=== PATIENT | male | born 1955 | race Caucasian/White ===

== ENCOUNTER 2016-08-27 11:00 | Inpatient (IN) ==
[2016-08-27 15:07] LABS: Bilirubin,Urine Negative (Negative); Blood,Urine Small (Negative); Clarity,Urine Cloudy (Clear); Color,Urine Dark Yellow (Yellow); Glucose,Urine (UA) Normal (Normal); Ketones,Urine Negative (Negative); Leukocyte Esterase,Urine Moderate (Negative); Nitrite,Urine Positive (Negative); PH,Urine 5.5 pH Units (5.0-8.0); Protein,Urine 30 mg/dL (Neg-Trace); Specific Gravity,Urine 1.024 (1.010-1.025); Urobilinogen,Urine Normal (Normal)
[2016-08-27 15:10] LABS: Bacteria,Urine Few per hpf (None-Few); Hyaline Casts,Urine Few per lpf (None-Few); Squamous Epithelial Cell,Urine None Seen per lpf (None-Few); WBC,Urine TNTC per hpf (0-3)
[2016-08-27 15:22] LABS: RBC,Urine 0-3 per hpf (0-3)
[2016-08-27 15:23] LABS: Calcium Oxalate Crystals,Urine Present
[2016-08-27] MEDS ORDERED: Aspirin 325 MG TABLET PO ONE (15:33)
[2016-08-27] MEDS ORDERED: Ondansetron 4 MG/2 ML VIAL IV ONE (15:33)
--- NOTE | 2016-08-27 15:37 | Emergency Department Note ---
Disposition Clinical Impression: Fever, Pneumonia, UTI (urinary tract infection), Weakness, Light headed Disposition: Admitted As Inpatient Condition: Fair Referrals: Ana Juarez CNP [Primary Care Provider] - Forms: ED Satisfaction Letter Time of Disposition: 17:47 General Adult HPI - General Chief complaint: ED Nausea/Vomiting/Diarrhea Stated complaint: Flu/Cold like symptoms Time Seen by Provider: 08/27/16 12:43 Source: patient Mode of arrival: ambulatory Limitations: no limitations Nursing Notes Reviewed: Yes Vital Signs Reviewed: Yes - History of Present Illness HPI Narrative: This is a 60-year-old male who presents with complaints of cough, congestion, dysuria, nausea, vomiting, and body aches. Patient states this got worse last night. Patient is running a fever here. Patient denies any chest pain. Patient denies any abdominal pain, diarrhea, or bloody stools. Patient states he does have a nodule in his lungs that they are watching to see if it grows. Patient states he is due for a recheck of this. Onset (ago): day(s) Pain Scale: 6 - Related Data Home Medications Medication Instructions Recorded Confirmed Atorvastatin [Lipitor] 40 mg PO HS 08/27/16 08/27/16 Gabapentin [Neurontin] 800 mg PO QID 08/27/16 08/27/16 Hydrochlorothiazide 25 mg PO DAILY 08/27/16 08/27/16 Lisinopril 30 mg PO DAILY 08/27/16 08/27/16 Omeprazole [PriLOSEC] 40 mg PO DAILY 08/27/16 08/27/16 Tramadol HCl [Ultram] 100 mg PO QID PRN 08/27/16 08/27/16 Allergies Allergy/AdvReac Type Severity Reaction Status Date / Time No Known Allergies Allergy Verified 09/27/15 09:57 All systems ED: reviewed and negative except as stated. Constitutional: Reports: fever, chills. Denies: weakness, weight change Eyes: Denies: eye pain, eye discharge, vision change ENT ED: Reports: congestion. Denies: ear pain, throat pain, dental pain, hearing loss, epistaxis, dysphagia Cardiovascular: Denies: chest pain, palpitations, dyspnea on exertion, edema, syncope Respiratory: Reports: cough. Denies: dyspnea, wheezes, hemoptysis, stridor Gastrointestinal: Reports: nausea, vomiting. Denies: abdominal pain, diarrhea, constipation, hematemesis, melena, hematochezia Genitourinary: Reports: dysuria, frequency. Denies: urgency, hematuria Musculoskeletal: Reports: myalgia (body aches). Denies: back pain, neck pain, arthralgia Integumentary: Denies: rash, abrasion, lesions Neurological: Denies: headache, weakness, numbness, paresthesias, confusion, abnormal gait, vertigo Psychiatric: Denies: anxiety, depression, suicidal thoughts, homicidal thoughts , auditory hallucinations, visual hallucinations Endocrine: Denies: fatigue Hematological/Lymphatic: Denies: easy bleeding, easy bruising Allergic/Immunologic: Denies: facial swelling, urticaria Past Medical History - Past Medical History Attestation: Yes The following information was validated with the patient. Source: patient Medical history: Reports: cancer, hyperlipidemia, hypertension, other Psychiatric history: Reports: no psych history - Social History Smoking Status: Former smoker Smokeless Tobacco Status: No Alcohol use: Reports: none Drug use: Reports: none Physical Exam - General Limitations: no limitations General appearance: alert, in no apparent distress - Head Head exam: atraumatic, normocephalic, normal inspection - Eye Eye exam: Present: normal appearance, PERRL, EOMI - ENT ENT exam: normal exam, normal oropharynx, mucous membranes moist - Expanded ENT Exam External ear exam: Present: normal external inspection Mouth exam: Present: normal external inspection Teeth exam: Present: normal inspection Throat exam: Present: normal inspection - Neck Neck exam: Present: normal inspection, full ROM, trachea midline - Chest Chest inspection: Present: normal inspection, symmetric chest wall rise - Respiratory Respiratory exam: Present: normal lung sounds bilaterally - Cardiovascular Cardiovascular exam: Present: regular rate, normal rhythm, normal heart sounds - Abdominal Exam Abdominal exam: Present: soft, Non-Tender. Absent: tenderness, distention, guarding, rebound, rigidity - Extremities Exam Extremities exam: Present: normal inspection, full ROM. Absent: tenderness, pedal edema - Expanded Upper Extremity Exam Shoulder exam: Present: normal inspection, full ROM Arm exam: Present: normal inspection, full ROM Elbow exam: Present: normal inspection, full ROM Forearm/Wrist exam: Present: normal inspection, full ROM Hand exam: Present: normal inspection, full ROM Vascular exam: Normal: capillary refill, radial pulse - Expanded Lower Extremity Exam Hip/Pelvis exam: Present: normal inspection, full ROM Upper leg exam: Present: normal inspection, full ROM Knee exam: Present: normal inspection, full ROM Lower leg exam: Present: normal inspection, full ROM Ankle exam: Present: normal inspection, full ROM Foot/toe exam: Present: normal inspection, full ROM Neurovascular/Tendon exam: Absent: motor deficit, sensory deficit, tendon deficit - Back Exam Back exam: Present: normal inspection, full ROM. Absent: tenderness - Neurological Exam Neurological exam: Present: alert, oriented X3 - Expanded Neurological Exam Patient oriented to: Present: person, place, time Coma Scale Eye Opening: Spontaneous Coma Scale Motor Response: Obeys Commands Coma Scale Verbal Response: Oriented Coma Scale Total: 15 - Psychiatric Psychiatric exam: Present: normal affect, normal mood - Skin Skin exam: Present: warm, intact, normal color, diaphoresis Course - Consultations Consultation #1: I spoke with Dr. Acosta luong to admit. Time: 19:37 Vital Signs Temperature 101.9 F H 08/27/16 11:20 Pulse Rate 84 08/27/16 11:20 Respiratory Rate 16 08/27/16 11:20 Blood Pressure 163/82 08/27/16 11:20 O2 Sat by Pulse Oximetry 95 08/27/16 11:20 Temperature 99.1 F 08/27/16 19:30 Pulse Rate 67 08/27/16 19:28 Respiratory Rate 16 08/27/16 19:28 Blood Pressure 125/54 08/27/16 19:28 O2 Sat by Pulse Oximetry 94 L 08/27/16 19:28 Oxygen Delivery Oxygen Delivery Room Air Medical Decision Making - Medical Records Medical records reviewed: Yes I reviewed the patient's medical records. - Lab Data Lab results reviewed: Yes I reviewed the patient's lab results. Result diagrams: 08/27/16 16:29 08/27/16 16:29 Lab Results 08/27/16 08/27/16 08/27/16 Range/Units 11:37 16:29 16:29 WBC 18.6 H (4.3-11.1) K/mcL RBC 4.53 (4.19-5.50) M/mcL Hgb 12.7 L (12.9-16.9) g/dL Hct 39.2 (37.5-50.1) % MCV 86.5 (83.0-100.0) fL MCH 28.0 (28.0-33.3) pg MCHC 32.4 (31.6-35.5) g/dL RDW 14.6 H (11.5-14.5) % Plt Count 225 (140-400) K/mcL MPV 11.0 (9.4-12.4) fL Immature Gran % 1.0 (0-4) % Seg Neutrophils % 74.9 % Lymphocytes % 8.8 % Monocytes % 14.9 % Eosinophils % 0.0 % Basophils % 0.4 % Neutrophils # 13.9 H (1.6-8.9) K/mcL Lymphocytes # 1.6 (0.6-4.6) K/mcL Monocytes # 2.8 H (0.0-1.3) K/mcL Eosinophils # 0.0 (0.0-0.6) K/mcL Basophils # 0.1 (0.0-0.2) K/mcL PT (9.4-12.1) Seconds INR APTT (26.0-36.0) Seconds Sodium 134 L (136-145) mEq/L Potassium 3.8 (3.5-4.5) mEq/L Chloride 102 (98-109) mEq/L Carbon Dioxide 22 (19-29) mEq/L BUN 13 (8-26) mg/dL Creatinine 0.86 (0.72-1.25) mg/dL Est GFR ( Amer) > 60 (> 60) Est GFR (Non-Af Amer) > 60 (> 60) BUN/Creatinine Ratio 15 (6-26) Glucose 104 H (70-99) mg/dL Calculated Osmolality 278 L (280-300) Lactic Acid (0.5-2.2) mmol/L Calcium 9.1 (8.6-10.8) mg/dL Total Bilirubin (0.2-1.2) mg/dL Direct Bilirubin (0.0-0.5) mg/dL Indirect Bilirubin (0.0-1.2) mg/dL AST (5-34) Units/L ALT (0-55) Units/L Alkaline Phosphatase (38-126) Units/L Troponin I (0-0.03) ng/mL B-Natriuretic Peptide (0-100) pg/mL Serum Total Protein (6.0-8.3) g/dL Albumin (3.5-5.0) g/dL Globulin (2.4-3.5) g/dL Albumin/Globulin Ratio (1.1-2.2) Lipase (8-78) Units/L Urine Color Dark Yellow (Yellow) Urine Clarity Cloudy A (Clear) Urine pH 5.5 (5.0-8.0) pH Units Ur Specific [place] 1.024 (1.010-1.025) Urine Protein 30 H (Neg-Trace) mg/dL Urine Glucose (UA) Normal (Normal) mg/dL Urine Ketones Negative (Negative) mg/dL Urine Blood Small H (Negative) Urine Nitrite Positive A (Negative) Urine Bilirubin Negative (Negative) Urine Urobilinogen Normal (Normal) mg/dL Ur Leukocyte Esterase Moderate H (Negative) Urine Microscopic RBC 0-3 (0-3) per hpf Urine Microscopic WBC TNTC H (0-3) per hpf Ur Squamous Epith Cells None Seen (None-Few) per lpf Calcium Oxalate Crystal Present Urine Bacteria Few (None-Few) per hpf Hyaline Casts Few (None-Few) per lpf Ur Culture Indicated? YES A (NO) 08/27/16 08/27/16 08/27/16 Range/Units 16:29 16:29 16:29 WBC (4.3-11.1) K/mcL RBC (4.19-5.50) M/mcL Hgb (12.9-16.9) g/dL Hct (37.5-50.1) % MCV (83.0-100.0) fL MCH (28.0-33.3) pg MCHC (31.6-35.5) g/dL RDW (11.5-14.5) % Plt Count (140-400) K/mcL MPV (9.4-12.4) fL Immature Gran % (0-4) % Seg Neutrophils % % Lymphocytes % % Monocytes % % Eosinophils % % Basophils % % Neutrophils # (1.6-8.9) K/mcL Lymphocytes # (0.6-4.6) K/mcL Monocytes # (0.0-1.3) K/mcL Eosinophils # (0.0-0.6) K/mcL Basophils # (0.0-0.2) K/mcL PT 15.9 H (9.4-12.1) Seconds INR 1.5 APTT 32.6 (26.0-36.0) Seconds Sodium (136-145) mEq/L Potassium (3.5-4.5) mEq/L Chloride (98-109) mEq/L Carbon Dioxide (19-29) mEq/L BUN (8-26) mg/dL Creatinine (0.72-1.25) mg/dL Est GFR ( Amer) (> 60) Est GFR (Non-Af Amer) (> 60) BUN/Creatinine Ratio (6-26) Glucose (70-99) mg/dL Calculated Osmolality (280-300) Lactic Acid 1.8 (0.5-2.2) mmol/L Calcium (8.6-10.8) mg/dL Total Bilirubin 0.9 (0.2-1.2) mg/dL Direct Bilirubin 0.4 (0.0-0.5) mg/dL Indirect Bilirubin 0.5 (0.0-1.2) mg/dL AST 12 (5-34) Units/L ALT 9 (0-55) Units/L Alkaline Phosphatase 73 (38-126) Units/L Troponin I (0-0.03) ng/mL B-Natriuretic Peptide (0-100) pg/mL Serum Total Protein 7.3 (6.0-8.3) g/dL Albumin 3.5 (3.5-5.0) g/dL Globulin 3.8 H (2.4-3.5) g/dL Albumin/Globulin Ratio 0.9 L (1.1-2.2) Lipase 9 (8-78) Units/L Urine Color (Yellow) Urine Clarity (Clear) Urine pH (5.0-8.0) pH Units Ur Specific [place] (1.010-1.025) Urine Protein (Neg-Trace) mg/dL Urine Glucose (UA) (Normal) mg/dL Urine Ketones (Negative) mg/dL Urine Blood (Negative) Urine Nitrite (Negative) Urine Bilirubin (Negative) Urine Urobilinogen (Normal) mg/dL Ur Leukocyte Esterase (Negative) Urine Microscopic RBC (0-3) per hpf Urine Microscopic WBC (0-3) per hpf Ur Squamous Epith Cells (None-Few) per lpf Calcium Oxalate Crystal Urine Bacteria (None-Few) per hpf Hyaline Casts (None-Few) per lpf Ur Culture Indicated? (NO) 08/27/16 08/27/16 Range/Units 16:29 16:29 WBC (4.3-11.1) K/mcL RBC (4.19-5.50) M/mcL Hgb (12.9-16.9) g/dL Hct (37.5-50.1) % MCV (83.0-100.0) fL MCH (28.0-33.3) pg MCHC (31.6-35.5) g/dL RDW (11.5-14.5) % Plt Count (140-400) K/mcL MPV (9.4-12.4) fL Immature Gran % (0-4) % Seg Neutrophils % % Lymphocytes % % Monocytes % % Eosinophils % % Basophils % % Neutrophils # (1.6-8.9) K/mcL Lymphocytes # (0.6-4.6) K/mcL Monocytes # (0.0-1.3) K/mcL Eosinophils # (0.0-0.6) K/mcL Basophils # (0.0-0.2) K/mcL PT (9.4-12.1) Seconds INR APTT (26.0-36.0) Seconds Sodium (136-145) mEq/L Potassium (3.5-4.5) mEq/L Chloride (98-109) mEq/L Carbon Dioxide (19-29) mEq/L BUN (8-26) mg/dL Creatinine (0.72-1.25) mg/dL Est GFR ( Amer) (> 60) Est GFR (Non-Af Amer) (> 60) BUN/Creatinine Ratio (6-26) Glucose (70-99) mg/dL Calculated Osmolality (280-300) Lactic Acid (0.5-2.2) mmol/L Calcium (8.6-10.8) mg/dL Total Bilirubin (0.2-1.2) mg/dL Direct Bilirubin (0.0-0.5) mg/dL Indirect Bilirubin (0.0-1.2) mg/dL AST (5-34) Units/L ALT (0-55) Units/L Alkaline Phosphatase (38-126) Units/L Troponin I 0.01 (0-0.03) ng/mL B-Natriuretic Peptide 52 (0-100) pg/mL Serum Total Protein (6.0-8.3) g/dL Albumin (3.5-5.0) g/dL Globulin (2.4-3.5) g/dL Albumin/Globulin Ratio (1.1-2.2) Lipase (8-78) Units/L Urine Color (Yellow) Urine Clarity (Clear) Urine pH (5.0-8.0) pH Units Ur Specific [place] (1.010-1.025) Urine Protein (Neg-Trace) mg/dL Urine Glucose (UA) (Normal) mg/dL Urine Ketones (Negative) mg/dL Urine Blood (Negative) Urine Nitrite (Negative) Urine Bilirubin (Negative) Urine Urobilinogen (Normal) mg/dL Ur Leukocyte Esterase (Negative) Urine Microscopic RBC (0-3) per hpf Urine Microscopic WBC (0-3) per hpf Ur Squamous Epith Cells (None-Few) per lpf Calcium Oxalate Crystal Urine Bacteria (None-Few) per hpf Hyaline Casts (None-Few) per lpf Ur Culture Indicated? (NO) - Radiology Data Radiology results reviewed: Yes I reviewed the patient's radiology results. - EKG Data EKG #1 EKG attestation: Yes I reviewed and interpreted this EKG. EKG shows normal: sinus rhythm Rate: normal Rhythm: NSR [place]/QRS: normal Interpretation: no acute changes, normal EKG
[2016-08-27] MEDS ORDERED: 0.9 % Sodium Chloride 1,000 ML IV SCH (15:45)
[2016-08-27 16:42] LABS: Basophils # 0.1 K/mcL (0.0-0.2); Basophils % 0.4 %; Hematocrit 39.2 % (37.5-50.1); Hemoglobin 12.7 g/dL (12.9-16.9); Lymphocytes # 1.6 K/mcL (0.6-4.6); Lymphocytes % 8.8 %; Mean Corpuscular HGB Conc 32.4 g/dL (31.6-35.5); Mean Corpuscular Volume 86.5 fL (83.0-100.0); Monocytes # 2.8 K/mcL (0.0-1.3); Monocytes % 14.9 %; Neutrophils # 13.9 K/mcL (1.6-8.9); Platelet Count 225 K/mcL (140-400); Red Blood Count 4.53 M/mcL (4.19-5.50); Red Cell Distribution Width 14.6 % (11.5-14.5); Segmented Neutrophils % 74.9 %
[2016-08-27 16:51] LABS: INR 1.5; Prothrombin Time 15.9 Seconds (9.4-12.1)
[2016-08-27 16:54] LABS: Activated Partial Thrombo Time 32.6 Seconds (26.0-36.0)
[2016-08-27 16:57] LABS: BUN/Creatinine Ratio 15 (6-26); Blood Urea Nitrogen 13 mg/dL (8-26); Calcium 9.1 mg/dL (8.6-10.8); Carbon Dioxide 22 mEq/L (19-29); Chloride 102 mEq/L (98-109); Glucose 104 mg/dL (70-99); Osmolality,Calculated 278 (280-300); Potassium 3.8 mEq/L (3.5-4.5); Sodium 134 mEq/L (136-145); eGFR For African Americans > 60 (> 60); eGFR For Non-African Americans > 60 (> 60)
[2016-08-27 17:00] LABS: Albumin 3.5 g/dL (3.5-5.0); Albumin/Globulin Ratio 0.9 (1.1-2.2); Bilirubin,Direct 0.4 mg/dL (0.0-0.5); Bilirubin,Indirect 0.5 mg/dL (0.0-1.2); Bilirubin,Total 0.9 mg/dL (0.2-1.2); Globulin 3.8 g/dL (2.4-3.5); Total Protein 7.3 g/dL (6.0-8.3)
[2016-08-27] MEDS ORDERED: Azithromycin 500 MG in D5% in Water 250 ML IVPB ONE (17:44)
[2016-08-27] MEDS ORDERED: Naloxone 0.4 MG/ML INJ IVP PRN (22:50)
[2016-08-27] MEDS ORDERED: Ondansetron 4 MG/2 ML VIAL IVP PRN (22:50)
[2016-08-27 23:07] LABS: ABG Base Excess 0.7 mEq/L (-2.0 to 3.0); ABG HCO3 25.4 mEQ/L (21-27); ABG Oxygen Saturation 93 % (95-98); ABG PCO2 40 mmHg (35-45); ABG PH 7.41 pH Units (7.32-7.45); ABG PO2 65 mmHg (85-104); ABG TCO2 26.6 mEq/L (20-26)
--- NOTE | 2016-08-27 23:07 | Internal Med History&Physical ---
Date of Encounter: 08/27/16 Time of Encounter: 22:30 Assessment and Plan (1) Sepsis Current visit: Yes Status: Acute 1. Will hydrate with IVF aggressively and monitor closely. 2. Blood and urine cultures already collected. 3. Will recheck for Influenza with PCR. 4. Start Tamiflu empirically. 5. Check ABG and Lactate and follow clinically and PRN. 6. Suspect urine and pneumonia source. Qualifiers: Sepsis type: sepsis due to unspecified organism Qualified Code(s): A41.9 - Sepsis, unspecified organism (2) Acute encephalopathy Current visit: Yes Status: Acute 1. Likely due to sepsis. 2. Will check Head CT and urine drug tox screen. 3. I also ordered ABG. 4. Hold mind-altering medications. (3) Pneumonia Current visit: Yes Status: Acute 1. Blood cultures already collected. 2. Continue IV antibiotics. 3. Will add Vancomycin given clinical state of sepsis. Qualifiers: Pneumonia type: due to unspecified organism Laterality: bilateral Lung location: unspecified part of lung Qualified Code(s): J18.9 - Pneumonia, unspecified organism (4) UTI (urinary tract infection) Current visit: Yes Status: Acute 1. Urine culture collected. 2. Continue IVF and IV antibiotics. 3. Adjust antibiotics according to identified organisms when culture results obtained. Qualifiers: Urinary tract infection type: acute cystitis Hematuria presence: with hematuria Qualified Code(s): N30.01 - Acute cystitis with hematuria (5) DVT prophylaxis Current visit: Yes Status: Acute 1. Heparin SQ. Internal Medicine - H&P: HPI Chief complaint: fever, cough, body aches Admitted From: Emergency Dept History of present illness: Mr. Stevens is a 60 year old male who presents the ER today with complaints of fever, cough, congestion, body aches, vomiting, and diarrhea. Workup in the ER revealed patient to have findings consistent with pneumonia and UTI. He was subsequently admitted to the hospitalist service. Upon my assessment of the patient, he is drenched in sweat and somnolent. He is arousable and confused and disoriented. I reviewed his medications administered in the ER, and he did not receive any mind-altering medications. Based upon preliminary assessment, I am worried that he is septic. I am only able to obtain minimal history from patient due to his acute confusion and disorientation. I discussed with his nurse,and this is a change from his initial presentation from the ER. I ordered some stat labs along with continued IV fluids and antibiotics. I suspect the source of his sepsis is urine and/or pneumonia. Despite negative influenza antigen, I also suspect influenza infection. I will order Influenza PCR and start Tamiflu empirically. Past Med Surg Social Fam HX - Past Medical History Source: old records reviewed, nursing notes reviewed, other (ER records reviewed ) Medical history: cancer, hyperlipidemia, hypertension Psychiatric history: no psych history - Past Surgical History Surgical History: orthopedic, other - Social History Smoking Status: Former smoker Smokeless Tobacco Status: No Alcohol use: none Drug use: none - Family History Father Hx Family Respiratory Disorders: Yes (lung disease) Mother Hx Family Cancer: (Leukemia) Internal Medicine - H&P: Meds Atorvastatin [Lipitor] 40 mg PO HS 08/27/16 [History] Gabapentin [Neurontin] 800 mg PO QID 08/27/16 [History] Hydrochlorothiazide 25 mg PO DAILY 08/27/16 [History] Lisinopril 30 mg PO DAILY 08/27/16 [History] Omeprazole [PriLOSEC] 40 mg PO DAILY 08/27/16 [History] Tramadol HCl [Ultram] 100 mg PO QID PRN 08/27/16 [History] Allergies No Known Allergies Allergy (Verified 09/27/15 09:57) ROS unobtainable: due to mental status Review of systems: Based upon limited history and ROS, pt reports + fevers, chills, body aches, and night sweats. No further ROS could be obtained. - Constitutional Vitals: Temp Pulse Resp BP Pulse Ox 98.0 F 62 20 121/68 94 L 08/27/16 22:44 08/27/16 22:44 08/27/16 22:44 08/27/16 22:44 08/27/16 22:44 General appearance: Present: A&O X 1, disheveled, mild distress. Absent: answers questions appropriately Exam: drenched in sweat, somnolent, easily arousable, confused and disoriented - Head Head exam: Present: atraumatic, normal inspection - Expanded Head Exam Head exam expanded: Absent: abrasion, contusion, general tenderness - Eye Eye exam: Present: EOMI, normal appearance, PERRL. Absent: scleral icterus Pupils: Present: normal accommodation - ENT ENT exam: Present: mucous membranes dry, normal exam - Expanded ENT Exam Mouth exam: Present: dry mucosa Throat exam: Present: post pharyngeal erythema - Neck Neck exam general surgery: Present: full ROM, supple, trachea midline. Absent: lymphadenopathy, tenderness, nuchal rigidity - Respiratory Respiratory exam: Present: decreased breath sounds, tachypnea. Absent: accessory muscle use, chest wall tenderness, rales, rhonchi, wheezes - Cardiovascular Cardiovascular exam: Present: distant heart sounds, RRR, +S1, +S2. Absent: diastolic murmur, JVD, systolic murmur - GI/Abdominal GI/Abdominal exam: Present: diminished bowel sounds, soft, no peritoneal signs. Absent: guarding, hepatomegaly, mass, rebound, splenomegaly, tenderness - Extremities Exam Extremities exam: Present: full ROM. Absent: calf tenderness, joint swelling, normal capillary refill (delayed at roughly 3-4 seconds), pedal edema, tenderness - Back Exam Back exam: Present: normal inspection. Absent: CVA tenderness (L), CVA tenderness (R) - Neurological Exam Neurological exam: Present: altered. Absent: oriented X3, no focal deficits Additional comments: confused and disoriented; no appreciable focal deficits; negative [place]; negative [place] - Psychiatric Additional comments: somnolent, arousable, confused, disoriented - Skin Skin exam: Present: diaphoretic, dry, warm. Absent: mottled, rash Internal Med - H&P Results - Labs CBC & Chem 7: 08/27/16 16:29 08/27/16 16:29 - EKG Data -: EKG Interpreted by Myself EKG shows normal: sinus rhythm - EKG Data Prior EKG available for review: yes When compared to previous EKG: there is no significant change EKG comments: 08/27/16 23:16 Sinus rhythm; baseline artifact, no acute ST-T changes; poor quality tracing
[2016-08-27 23:08] LABS: Blood Gas FiO2 21 %
[2016-08-27] MEDS ORDERED: Vancomycin 2,000 MG in D5% in Water 250 ML IVPB SCH (23:45)
[2016-08-27] MEDS: 0.9 % Sodium Chloride w KCl 20 MEQ/1,000 ML MLS IVC SCH (23:51)
[2016-08-27] MEDS: Azithromycin 500 MG in D5% in Water 250 ML IVPB SCH (23:53)
[2016-08-28] MEDS: Vancomycin 2,000 MG in D5% in Water 500 ML IVPB SCH ×2 (02:28→13:16)
[2016-08-28] MEDS: *HR* Heparin 5,000 UNIT/ML VIAL SQ SCH ×2 (05:39→17:47)
[2016-08-28 05:40] LABS: Basophils % 0.3 %; Eosinophils # 0.1 K/mcL (0.0-0.6); Eosinophils % 0.4 %; Hematocrit 33.8 % (37.5-50.1); INR 1.4; Immature Granulocytes % 0.6 % (0-4); Lymphocytes # 1.3 K/mcL (0.6-4.6); Lymphocytes % 9.1 %; Mean Corpuscular HGB Conc 32.8 g/dL (31.6-35.5); Mean Corpuscular Hemoglobin 28.5 pg (28.0-33.3); Mean Corpuscular Volume 86.9 fL (83.0-100.0); Mean Platelet Volume 11.1 fL (9.4-12.4); Monocytes # 1.7 K/mcL (0.0-1.3); Monocytes % 12.5 %; Neutrophils # 10.6 K/mcL (1.6-8.9); Platelet Count 178 K/mcL (140-400); Prothrombin Time 15.2 Seconds (9.4-12.1); Red Blood Count 3.89 M/mcL (4.19-5.50); Red Cell Distribution Width 14.3 % (11.5-14.5); Segmented Neutrophils % 77.1 %
[2016-08-28 05:41] LABS: Hemoglobin 11.1 g/dL (12.9-16.9)
[2016-08-28 05:42] LABS: Activated Partial Thrombo Time 30.7 Seconds (26.0-36.0)
[2016-08-28 05:48] LABS: Alanine Aminotransferase 8 Units/L (0-55); Albumin/Globulin Ratio 0.8 (1.1-2.2); Alkaline Phosphatase 62 Units/L (38-126); Aspartate Amino Transferase 9 Units/L (5-34); BUN/Creatinine Ratio 15 (6-26); Bilirubin,Total 0.6 mg/dL (0.2-1.2); Blood Urea Nitrogen 11 mg/dL (8-26); Calcium 8.3 mg/dL (8.6-10.8); Carbon Dioxide 23 mEq/L (19-29); Chloride 104 mEq/L (98-109); Globulin 3.5 g/dL (2.4-3.5); Glucose 136 mg/dL (70-99); Magnesium 1.6 mg/dL (1.6-2.6); Osmolality,Calculated 281 (280-300); Potassium 3.8 mEq/L (3.5-4.5); Sodium 135 mEq/L (136-145); Total Protein 6.2 g/dL (6.0-8.3); eGFR For African Americans > 60 (> 60); eGFR For Non-African Americans > 60 (> 60)
[2016-08-28 05:49] LABS: Albumin 2.7 g/dL (3.5-5.0)
[2016-08-28] MEDS ORDERED: Aminoglycoside Consult 1 EACH MC ONE (07:23)
[2016-08-28 08:07] LABS: Amphetamine Screen,Urine Negative ng/mL (Cutoff=1000); Barbiturate Screen,Urine Negative ng/mL (Cutoff=200); Benzodiazepines Screen,Urine Negative ng/mL (Cutoff=200); Cannabinoid Screen,Urine Negative ng/mL (Cutoff = 50); Cocaine Screen,Urine Negative ng/mL (Cutoff= 300); Opiate Screen,Urine Negative ng/mL (Cutoff=300); Phencyclidine Screen,Urine Negative ng/mL (Cutoff=25)
[2016-08-28] MEDS: Acetaminophen 325 MG TABLET PO PRN ×2 (09:32→17:47)
[2016-08-28] MEDS: 0.9 % Sodium Chloride w KCl 20 MEQ/1,000 ML MLS IVC SCH (09:33)
--- NOTE | 2016-08-28 09:34 | Internal Med Progress Note ---
<Vahe Huertas - Last Filed: 08/28/16 14:54> Date of Encounter: 08/28/16 Time of Encounter: 09:34 - Assessment and plan (1) Community acquired bacterial pneumonia Current Visit: Yes Status: Acute Assessment and plan: Chest x-ray and clinical symptoms suggest CAP, con't azithromycin and rocephin IV, sputum culture collecting sample pending, blood culture x2 pending, leukocytosis improving, con't current management. (2) Sepsis Current Visit: Yes Status: Acute Assessment and plan: Resolved, source is uti and/or CAP, con't IV abx. Qualifiers: Sepsis type: sepsis due to unspecified organism Qualified Code(s): A41.9 - Sepsis, unspecified organism (3) UTI (urinary tract infection) Current Visit: Yes Status: Acute Assessment and plan: First time having this, came in with sepsis picture, r/o pyelo, stone, hydroureter since he is a male, will obtain CT abd/pelvis. Qualifiers: Urinary tract infection type: acute cystitis Hematuria presence: with hematuria Qualified Code(s): N30.01 - Acute cystitis with hematuria (4) Weakness Current Visit: Yes Status: Acute Assessment and plan: PT/OT (5) DVT prophylaxis Current Visit: Yes Status: Acute Assessment and plan: Heparin SQ BID. - Subjective Interval history: Pt seen and examined, feels better than yesterday, admits productive cough and dysuria that started few days ago. - Constitutional Vitals: Temp Pulse Resp BP Pulse Ox 99.8 F H 69 18 137/70 94 L 08/28/16 08:29 08/28/16 08:29 08/28/16 08:29 08/28/16 08:29 08/28/16 08:29 General appearance: Present: A&O X 3, no acute distress, obese, answers questions appropriately - Head Head exam: Present: atraumatic, normocephalic - Eye Eye exam: Present: PERRL, conjuntiva pink, sclera anicteric Pupils: Present: PERRL - Neck Neck exam general surgery: Present: supple, trachea midline. Absent: lymphadenopathy - Respiratory Respiratory exam: Present: decreased breath sounds (diffusely b/l). Absent: accessory muscle use, prolonged expiratory phase, rales, rhonchi, wheezes - Cardiovascular Cardiovascular exam: Present: RRR, +S1, +S2. Absent: diastolic murmur, gallop, rubs, systolic murmur - GI/Abdominal GI/Abdominal exam: Present: normal bowel sounds, soft, no peritoneal signs. Absent: distended, tenderness - Extremities Exam Extremities exam: Present: warm, radial pulses palpable and symetrical. Absent : calf tenderness, cyanotic, pedal edema - Neurological Exam Neurological exam: Present: CN II-XII intact, oriented X3, no focal deficits. Absent: pronater drift, facial droop, speech deficit - Skin Skin exam: Present: dry, intact Internal Medicine: Result - Labs CBC & Chem 7: 08/28/16 04:59 08/28/16 04:59 Labs: Short CBC 08/28/16 Range/Units 04:59 WBC 13.7 H (4.3-11.1) K/mcL Hgb 11.1 L D (12.9-16.9) g/dL Hct 33.8 L (37.5-50.1) % Plt Count 178 (140-400) K/mcL Neutrophils # 10.6 H (1.6-8.9) K/mcL BMP 08/28/16 04:59 Sodium 135 L Potassium 3.8 Chloride 104 Carbon Dioxide 23 BUN 11 Creatinine 0.72 Glucose 136 H Calcium 8.3 L Liver Function 08/28/16 Range/Units 04:59 Total Bilirubin 0.6 (0.2-1.2) mg/dL AST 9 (5-34) Units/L ALT 8 (0-55) Units/L Alkaline Phosphatase 62 (38-126) Units/L Albumin 2.7 L D (3.5-5.0) g/dL - ABG Interpretation ABG results: ABG ABG pH 7.41 pH Units (7.32-7.45) 08/27/16 22:55 ABG pCO2 40 mmHg (35-45) 08/27/16 22:55 ABG pO2 65 mmHg (85-104) L 08/27/16 22:55 ABG O2 Saturation 93 % (95-98) L 08/27/16 22:55 PT/INR, D-dimer PT 15.2 Seconds (9.4-12.1) H 08/28/16 04:59 - Impressions Impressions Head CT 08/27/16 23:25 IMPRESSION: 1. No acute intracranial abnormality. 2. Mild global parenchymal volume loss. 3. Left frontal sinusitis. D/ / Taran Hernandez MD / Taran Hernandez MD Interpreting Provider: Taran Hernandez MD Consult Discharge Plan - Plan Referrals: Ana Juarez CNP [Primary Care Provider] - 09/02/16 12:45 pm <Noah Shore - Last Filed: 08/28/16 16:36> Date of Encounter: 08/28/16 - Constitutional Vitals: Temp Pulse Resp BP Pulse Ox 98.5 F 63 22 130/74 96 08/28/16 15:25 08/28/16 15:25 08/28/16 15:25 08/28/16 15:25 08/28/16 15:25 Internal Medicine: Result - Labs CBC & Chem 7: 08/28/16 04:59 08/28/16 04:59 Labs: Short CBC 08/28/16 Range/Units 04:59 WBC 13.7 H (4.3-11.1) K/mcL Hgb 11.1 L D (12.9-16.9) g/dL Hct 33.8 L (37.5-50.1) % Plt Count 178 (140-400) K/mcL Neutrophils # 10.6 H (1.6-8.9) K/mcL BMP 08/28/16 04:59 Sodium 135 L Potassium 3.8 Chloride 104 Carbon Dioxide 23 BUN 11 Creatinine 0.72 Glucose 136 H Calcium 8.3 L Liver Function 08/28/16 Range/Units 04:59 Total Bilirubin 0.6 (0.2-1.2) mg/dL AST 9 (5-34) Units/L ALT 8 (0-55) Units/L Alkaline Phosphatase 62 (38-126) Units/L Albumin 2.7 L D (3.5-5.0) g/dL - ABG Interpretation ABG results: ABG ABG pH 7.41 pH Units (7.32-7.45) 08/27/16 22:55 ABG pCO2 40 mmHg (35-45) 08/27/16 22:55 ABG pO2 65 mmHg (85-104) L 08/27/16 22:55 ABG O2 Saturation 93 % (95-98) L 08/27/16 22:55 PT/INR, D-dimer PT 15.2 Seconds (9.4-12.1) H 08/28/16 04:59 - Impressions Impressions Head CT 08/27/16 23:25 IMPRESSION: 1. No acute intracranial abnormality. 2. Mild global parenchymal volume loss. 3. Left frontal sinusitis. D/ / Taran Hernandez MD / Taran Hernandez MD Interpreting Provider: Taran Hernandez MD - Attending Attestation I examined this patient and my medical decision-making was reviewed with the PRESS SUPERVISOR/PA/Advanced Practice Nurse/Resident Physician. I agree with the documented findings, disposition and treatment plan as described except to the extent set forth below. The patient was seen and examined with the residents during multi disciplinary rounds. I agree with the physical examination findings, assessment and plan as documented by Dr. Vahe Huertas. Briefly, patient admitted with sepsis, secondary to a urinary tract infection, chest x-ray and clinical findings also consistent with pneumonia. Community acquired pneumonia , therefore we will stop vancomycin. We will continue with coverage with both Rocephin and azithromycin. Urine culture shows gram-negative rods, we will follow final results. We will stop Tamiflu in light of negative testing for influenza. Continue with DVT prophylaxis.
--- NOTE | 2016-08-28 11:25 | Electrocardiograph Report ---
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
[2016-08-28] MEDS: Azithromycin 500 MG in D5% in Water 250 ML IVPB SCH (23:33)
[2016-08-29] MEDS: Acetaminophen 325 MG TABLET PO PRN ×2 (00:26→20:38)
[2016-08-29] MEDS: *HR* Heparin 5,000 UNIT/ML VIAL SQ SCH ×2 (06:03→17:23)
[2016-08-29 06:16] LABS: Basophils % 0.6 %; Eosinophils % 0.4 %; Hematocrit 34.4 % (37.5-50.1); Hemoglobin 11.3 g/dL (12.9-16.9); Immature Granulocytes % 0.4 % (0-4); Lymphocytes # 0.6 K/mcL (0.6-4.6); Lymphocytes % 12.1 %; Mean Corpuscular HGB Conc 32.8 g/dL (31.6-35.5); Mean Corpuscular Hemoglobin 28.5 pg (28.0-33.3); Mean Corpuscular Volume 86.9 fL (83.0-100.0); Mean Platelet Volume 11.6 fL (9.4-12.4); Monocytes # 0.7 K/mcL (0.0-1.3); Monocytes % 13.2 %; Neutrophils # 3.6 K/mcL (1.6-8.9); Platelet Count 121 K/mcL (140-400); Red Blood Count 3.96 M/mcL (4.19-5.50); Segmented Neutrophils % 73.3 %
--- NOTE | 2016-08-29 13:53 | Internal Med Progress Note ---
<Vahe Huertas - Last Filed: 08/29/16 13:50> Date of Encounter: 08/29/16 Time of Encounter: 13:50 - Assessment and plan (1) Community acquired bacterial pneumonia Current Visit: Yes Status: Acute Assessment and plan: Chest x-ray and clinical symptoms suggest CAP, con't azithromycin and rocephin IV, sputum culture collecting sample pending, blood culture x2 negative, leukocytosis resolved, con't current management. (2) Thrombocytopenia Current Visit: Yes Status: Acute Assessment and plan: Heparin started two days ago, no prior to that w/in 30 days, likely 2/2 infection, but will do workup with hepatitis panel, check b12, folic acid and hepatic panel, recheck in AM. (3) Sepsis Current Visit: Yes Status: Acute Assessment and plan: Spiked fever, tachypnea, leukocytosis resolved, waiting for urine culture, con' t IV abx. Qualifiers: Sepsis type: sepsis due to unspecified organism Qualified Code(s): A41.9 - Sepsis, unspecified organism (4) UTI (urinary tract infection) Current Visit: Yes Status: Acute Assessment and plan: CT abd was negative, culture sensitivity pending, con't rocephin for now. Qualifiers: Urinary tract infection type: acute cystitis Hematuria presence: with hematuria Qualified Code(s): N30.01 - Acute cystitis with hematuria (5) Weakness Current Visit: Yes Status: Acute Assessment and plan: PT/OT said no therapy needed for now. (6) DVT prophylaxis Current Visit: Yes Status: Acute Assessment and plan: Heparin SQ BID. - Subjective Interval history: Pt seen and examined, he said that he felt chill on/off yesterday, last night he spiked fever of 101, productive cough improved, no dysuria. - Constitutional Vitals: Temp Pulse Resp BP Pulse Ox 99.4 F 67 24 122/64 94 L 08/29/16 11:11 08/29/16 11:11 08/29/16 11:11 08/29/16 11:11 08/29/16 11:11 General appearance: Present: A&O X 3, no acute distress, obese, answers questions appropriately - Head Head exam: Present: atraumatic, normocephalic - Eye Eye exam: Present: PERRL, conjuntiva pink, sclera anicteric Pupils: Present: PERRL - Neck Neck exam general surgery: Present: supple, trachea midline. Absent: lymphadenopathy - Respiratory Respiratory exam: Present: CTAB. Absent: accessory muscle use, rales, rhonchi, wheezes - Cardiovascular Cardiovascular exam: Present: RRR, +S1, +S2. Absent: diastolic murmur, gallop, rubs, systolic murmur - GI/Abdominal GI/Abdominal exam: Present: normal bowel sounds, soft, no peritoneal signs. Absent: distended, tenderness - Extremities Exam Extremities exam: Present: warm, radial pulses palpable and symetrical. Absent : calf tenderness, cyanotic, pedal edema - Neurological Exam Neurological exam: Present: CN II-XII intact, oriented X3, no focal deficits. Absent: pronater drift, facial droop, speech deficit - Skin Skin exam: Present: dry, intact Internal Medicine: Result - Labs CBC & Chem 7: 08/29/16 04:31 08/28/16 04:59 Labs: Short CBC 08/29/16 Range/Units 04:31 WBC 4.9 D (4.3-11.1) K/mcL Hgb 11.3 L (12.9-16.9) g/dL Hct 34.4 L (37.5-50.1) % Plt Count 121 L (140-400) K/mcL Neutrophils # 3.6 (1.6-8.9) K/mcL - ABG Interpretation ABG results: ABG ABG pH 7.41 pH Units (7.32-7.45) 08/27/16 22:55 ABG pCO2 40 mmHg (35-45) 08/27/16 22:55 ABG pO2 65 mmHg (85-104) L 08/27/16 22:55 ABG O2 Saturation 93 % (95-98) L 08/27/16 22:55 PT/INR, D-dimer PT 15.2 Seconds (9.4-12.1) H 08/28/16 04:59 - Impressions Impressions Abdomen/Pelvis CT 08/28/16 14:46 IMPRESSION: No evidence of obstructive uropathy. No obvious inflammatory changes around the kidneys or urinary bladder. Fatty infiltration of the liver. Diverticulosis but no acute diverticulitis. Normal appendix. D/ 08/28/2016 18:41:06 Kathi Harris MD / fe Interpreting Provider: Kathi Harris MD Consult Discharge Plan - Plan Referrals: Ana Juarez CNP [Primary Care Provider] - 09/02/16 12:45 pm <MoneNoah R - Last Filed: 08/29/16 14:46> Date of Encounter: 08/29/16 - Constitutional Vitals: Temp Pulse Resp BP Pulse Ox 99.4 F 67 24 122/64 94 L 08/29/16 11:11 08/29/16 11:11 08/29/16 11:11 08/29/16 11:11 08/29/16 11:11 Internal Medicine: Result - Labs CBC & Chem 7: 08/29/16 04:31 08/28/16 04:59 Labs: Short CBC 08/29/16 Range/Units 04:31 WBC 4.9 D (4.3-11.1) K/mcL Hgb 11.3 L (12.9-16.9) g/dL Hct 34.4 L (37.5-50.1) % Plt Count 121 L (140-400) K/mcL Neutrophils # 3.6 (1.6-8.9) K/mcL - ABG Interpretation ABG results: ABG ABG pH 7.41 pH Units (7.32-7.45) 08/27/16 22:55 ABG pCO2 40 mmHg (35-45) 08/27/16 22:55 ABG pO2 65 mmHg (85-104) L 08/27/16 22:55 ABG O2 Saturation 93 % (95-98) L 08/27/16 22:55 PT/INR, D-dimer PT 15.2 Seconds (9.4-12.1) H 08/28/16 04:59 - Impressions Impressions Abdomen/Pelvis CT 08/28/16 14:46 IMPRESSION: No evidence of obstructive uropathy. No obvious inflammatory changes around the kidneys or urinary bladder. Fatty infiltration of the liver. Diverticulosis but no acute diverticulitis. Normal appendix. D/ 08/28/2016 18:41:06 Kathi Harris MD / fe Interpreting Provider: Kathi Harris MD - Attending Attestation Mr. Stevens was seen and examined in rounds. Agree with Dr. Huertas's note. Patient had fever last night, urine culture revealed gram-negative rods. There is thrombocytopenia as well. We will advance diet, we will continue with IV antibiotics. We will follow cultures.
[2016-08-29] MEDS: Azithromycin 500 MG in D5% in Water 250 ML IVPB SCH (22:52)
[2016-08-30] MEDS: Acetaminophen 325 MG TABLET PO PRN ×2 (04:14→19:41)
[2016-08-30 05:09] LABS: Basophils % 0.4 %; Eosinophils % 0.1 %; Hematocrit 35.9 % (37.5-50.1); Immature Granulocytes % 0.5 % (0-4); Lymphocytes % 11.7 %; Mean Corpuscular HGB Conc 33.4 g/dL (31.6-35.5); Mean Corpuscular Hemoglobin 28.4 pg (28.0-33.3); Mean Corpuscular Volume 84.9 fL (83.0-100.0); Mean Platelet Volume 11.8 fL (9.4-12.4); Monocytes # 1.2 K/mcL (0.0-1.3); Monocytes % 14.8 %; Neutrophils # 5.9 K/mcL (1.6-8.9); Platelet Count 172 K/mcL (140-400); Red Blood Count 4.23 M/mcL (4.19-5.50); Red Cell Distribution Width 13.9 % (11.5-14.5); Segmented Neutrophils % 72.5 %
[2016-08-30 05:26] LABS: Alanine Aminotransferase 19 Units/L (0-55); Albumin 2.9 g/dL (3.5-5.0); Albumin/Globulin Ratio 0.8 (1.1-2.2); Alkaline Phosphatase 73 Units/L (38-126); Aspartate Amino Transferase 28 Units/L (5-34); BUN/Creatinine Ratio 12 (6-26); Bilirubin,Total 0.4 mg/dL (0.2-1.2); Blood Urea Nitrogen 10 mg/dL (8-26); Calcium 8.8 mg/dL (8.6-10.8); Carbon Dioxide 20 mEq/L (19-29); Chloride 102 mEq/L (98-109); Globulin 3.8 g/dL (2.4-3.5); Glucose 109 mg/dL (70-99); Osmolality,Calculated 278 (280-300); Sodium 134 mEq/L (136-145); Total Protein 6.7 g/dL (6.0-8.3); eGFR For African Americans > 60 (> 60); eGFR For Non-African Americans > 60 (> 60)
[2016-08-30] MEDS: *HR* Heparin 5,000 UNIT/ML VIAL SQ SCH ×2 (05:40→17:21)
[2016-08-30 06:09] LABS: Folate 10.2 ng/mL (7.0-31.4); Hepatitis A Antibody IgM Nonreactive (Nonreactive); Hepatitis B Core IgM Nonreactive (Nonreactive); Hepatitis B Surface Antigen Nonreactive (Nonreactive); Hepatitis C Virus Antibody Nonreactive (Nonreactive); Vitamin B12 268 pg/mL (213-816)
--- NOTE | 2016-08-30 07:45 | Internal Med Progress Note ---
<Vahe Huertas - Last Filed: 08/30/16 15:38> Date of Encounter: 08/30/16 Time of Encounter: 07:45 - Assessment and plan (1) UTI due to extended-spectrum beta lactamase (ESBL) producing Escherichia coli Current Visit: Yes Status: Acute Assessment and plan: Urine culture showed e.coli ESBL, resistant to multiple abxs, will switch to ertapenem today and when he goes home, will switch to IM once daily. (2) Community acquired bacterial pneumonia Current Visit: Yes Status: Acute Assessment and plan: Chest x-ray and clinical symptoms suggest CAP, switched to ertapenem for esbl e.coli uti but this will still cover for CAP. (3) Thrombocytopenia Current Visit: Yes Status: Acute Assessment and plan: Improved, likely 2/2 underlying infection, con't abx. (4) Sepsis Current Visit: Yes Status: Acute Assessment and plan: Spiked fever, but tachypnea, leukocytosis resolved, urine culture reviwed, con' t IV abx. Qualifiers: Sepsis type: sepsis due to unspecified organism Qualified Code(s): A41.9 - Sepsis, unspecified organism (5) Weakness Current Visit: Yes Status: Acute Assessment and plan: PT/OT said no therapy needed for now. (6) DVT prophylaxis Current Visit: Yes Status: Acute Assessment and plan: Heparin SQ BID. - Subjective Interval history: Pt seen and examined, multiple fever last night, but he feels fine this AM, productive cough got better and no dysuria. - Constitutional Vitals: Temp Pulse Resp BP Pulse Ox 100.3 F H 72 17 113/63 97 08/30/16 07:04 08/30/16 07:04 08/30/16 07:04 08/30/16 07:04 08/30/16 07:04 General appearance: Present: cooperative, A&O X 3, pleasant, no acute distress, obese, answers questions appropriately - Head Head exam: Present: atraumatic, normocephalic - Eye Eye exam: Present: PERRL, conjuntiva pink, sclera anicteric Pupils: Present: PERRL - Neck Neck exam general surgery: Present: supple, trachea midline. Absent: lymphadenopathy - Respiratory Respiratory exam: Present: CTAB. Absent: accessory muscle use, rales, rhonchi, wheezes - Cardiovascular Cardiovascular exam: Present: RRR, +S1, +S2. Absent: diastolic murmur, gallop, rubs, systolic murmur - GI/Abdominal GI/Abdominal exam: Present: normal bowel sounds, soft, no peritoneal signs. Absent: distended, tenderness - Extremities Exam Extremities exam: Present: warm, radial pulses palpable and symetrical. Absent : calf tenderness, cyanotic, pedal edema - Neurological Exam Neurological exam: Present: CN II-XII intact, oriented X3, no focal deficits. Absent: pronater drift, facial droop, speech deficit - Skin Skin exam: Present: dry, intact Internal Medicine: Result - Labs CBC & Chem 7: 08/30/16 04:20 08/30/16 04:20 Labs: Short CBC 08/30/16 Range/Units 04:20 WBC 8.1 D (4.3-11.1) K/mcL Hgb 12.0 L (12.9-16.9) g/dL Hct 35.9 L (37.5-50.1) % Plt Count 172 (140-400) K/mcL Neutrophils # 5.9 (1.6-8.9) K/mcL BMP 08/30/16 04:20 Sodium 134 L Potassium 4.0 Chloride 102 Carbon Dioxide 20 BUN 10 Creatinine 0.82 Glucose 109 H Calcium 8.8 Liver Function 08/30/16 Range/Units 04:20 Total Bilirubin 0.4 (0.2-1.2) mg/dL AST 28 (5-34) Units/L ALT 19 (0-55) Units/L Alkaline Phosphatase 73 (38-126) Units/L Albumin 2.9 L (3.5-5.0) g/dL - ABG Interpretation ABG results: ABG ABG pH 7.41 pH Units (7.32-7.45) 08/27/16 22:55 ABG pCO2 40 mmHg (35-45) 08/27/16 22:55 ABG pO2 65 mmHg (85-104) L 08/27/16 22:55 ABG O2 Saturation 93 % (95-98) L 08/27/16 22:55 PT/INR, D-dimer PT 15.2 Seconds (9.4-12.1) H 08/28/16 04:59 Consult Discharge Plan - Plan Referrals: Ana Juarez CNP [Primary Care Provider] - 09/02/16 12:45 pm <ShoreNoah Alberto - Last Filed: 08/30/16 17:52> Date of Encounter: 08/30/16 - Constitutional Vitals: Temp Pulse Resp BP Pulse Ox 97.4 F L 97 17 144/93 98 08/30/16 15:23 08/30/16 15:23 08/30/16 15:23 08/30/16 15:23 08/30/16 15:23 Internal Medicine: Result - Labs CBC & Chem 7: 08/30/16 04:20 08/30/16 04:20 Labs: Short CBC 08/30/16 Range/Units 04:20 WBC 8.1 D (4.3-11.1) K/mcL Hgb 12.0 L (12.9-16.9) g/dL Hct 35.9 L (37.5-50.1) % Plt Count 172 (140-400) K/mcL Neutrophils # 5.9 (1.6-8.9) K/mcL BMP 08/30/16 04:20 Sodium 134 L Potassium 4.0 Chloride 102 Carbon Dioxide 20 BUN 10 Creatinine 0.82 Glucose 109 H Calcium 8.8 Liver Function 08/30/16 Range/Units 04:20 Total Bilirubin 0.4 (0.2-1.2) mg/dL AST 28 (5-34) Units/L ALT 19 (0-55) Units/L Alkaline Phosphatase 73 (38-126) Units/L Albumin 2.9 L (3.5-5.0) g/dL - ABG Interpretation ABG results: ABG ABG pH 7.41 pH Units (7.32-7.45) 08/27/16 22:55 ABG pCO2 40 mmHg (35-45) 08/27/16 22:55 ABG pO2 65 mmHg (85-104) L 08/27/16 22:55 ABG O2 Saturation 93 % (95-98) L 08/27/16 22:55 PT/INR, D-dimer PT 15.2 Seconds (9.4-12.1) H 08/28/16 04:59 - Attending Attestation I examined this patient and my medical decision-making was reviewed with the PRODUCT MARKETING CONSULTANT/PA/Advanced Practice Nurse/Resident Physician. I agree with the documented findings, disposition and treatment plan as described except to the extent set forth below. Mr. Stevens was seen and examined on rounds. Escherichia coli ESBL isolated. The patient was febrile overnight. We will stop Rocephin and start ertapenem. Platelet count has improved. Likely etiology of thrombocytopenia was infection. Will continue monitoring.
[2016-08-30] MEDS: Ertapenem 1,000 MG in 0.9 % Sodium Chloride Mini Bag 100 ML IVPB SCH (09:15)
[2016-08-30] MEDS: Ibuprofen 400 MG TABLET PO PRN (22:25)
[2016-08-31] MEDS: *HR* Heparin 5,000 UNIT/ML VIAL SQ SCH ×2 (06:17→17:42)
[2016-08-31] MEDS: Ertapenem 1,000 MG in 0.9 % Sodium Chloride Mini Bag 100 ML IVPB SCH (09:12)
--- NOTE | 2016-08-31 16:04 | Internal Med Progress Note ---
<Vahe Huertas - Last Filed: 08/31/16 16:02> Date of Encounter: 08/31/16 Time of Encounter: 16:04 - Assessment and plan (1) UTI due to extended-spectrum beta lactamase (ESBL) producing Escherichia coli Current Visit: Yes Status: Acute Assessment and plan: Urine culture showed e.coli ESBL, resistant to multiple abxs, switched to ertapenem and when he goes home, will switch to IM once daily. (2) Community acquired bacterial pneumonia Current Visit: Yes Status: Acute Assessment and plan: Chest x-ray and clinical symptoms suggest CAP, switched to ertapenem for esbl e.coli uti but this will still cover for CAP. (3) Thrombocytopenia Current Visit: Yes Status: Acute Assessment and plan: Improved, likely 2/2 underlying infection, con't abx. (4) Sepsis Current Visit: Yes Status: Acute Assessment and plan: Spiked fever, but tachypnea, leukocytosis resolved, urine culture reviwed, con' t IV abx. Qualifiers: Sepsis type: sepsis due to unspecified organism Qualified Code(s): A41.9 - Sepsis, unspecified organism (5) Weakness Current Visit: Yes Status: Acute Assessment and plan: PT/OT said no therapy needed for now. (6) Constipation Current Visit: Yes Status: Acute Assessment and plan: Will start lactulose BID. Qualifiers: Qualified Code(s): K59.00 - Constipation, unspecified (7) DVT prophylaxis Current Visit: Yes Status: Acute Assessment and plan: Heparin SQ BID. - Subjective Interval history: Pt seen and examined, one fever last night, but he feels fine this AM, productive cough got better and no dysuria, still no bowel movement. - Constitutional Vitals: Temp Pulse Resp BP Pulse Ox 99.4 F 72 20 147/67 95 08/31/16 15:05 08/31/16 15:05 08/31/16 15:05 08/31/16 15:05 08/31/16 15:05 General appearance: Present: cooperative, A&O X 3, pleasant, no acute distress, obese, answers questions appropriately - Head Head exam: Present: atraumatic, normocephalic - Eye Eye exam: Present: PERRL, conjuntiva pink, sclera anicteric Pupils: Present: PERRL - Neck Neck exam general surgery: Present: supple, trachea midline. Absent: lymphadenopathy - Respiratory Respiratory exam: Present: CTAB. Absent: accessory muscle use, rales, rhonchi, wheezes - Cardiovascular Cardiovascular exam: Present: RRR, +S1, +S2. Absent: diastolic murmur, gallop, rubs, systolic murmur - GI/Abdominal GI/Abdominal exam: Present: normal bowel sounds, soft, no peritoneal signs. Absent: distended, tenderness - Extremities Exam Extremities exam: Present: warm, radial pulses palpable and symetrical. Absent : calf tenderness, cyanotic, pedal edema - Neurological Exam Neurological exam: Present: CN II-XII intact, oriented X3, no focal deficits. Absent: pronater drift, facial droop, speech deficit - Skin Skin exam: Present: dry, intact Internal Medicine: Result - Labs CBC & Chem 7: 08/30/16 04:20 08/30/16 04:20 - ABG Interpretation ABG results: ABG ABG pH 7.41 pH Units (7.32-7.45) 08/27/16 22:55 ABG pCO2 40 mmHg (35-45) 08/27/16 22:55 ABG pO2 65 mmHg (85-104) L 08/27/16 22:55 ABG O2 Saturation 93 % (95-98) L 08/27/16 22:55 PT/INR, D-dimer PT 15.2 Seconds (9.4-12.1) H 08/28/16 04:59 Consult Discharge Plan - Plan Referrals: Ana Juarez FREIGHT RATE ANALYST [Primary Care Provider] - 09/02/16 12:45 pm <Noah Shore - Last Filed: 08/31/16 17:32> Date of Encounter: 08/31/16 - Constitutional Vitals: Temp Pulse Resp BP Pulse Ox 99.4 F 72 20 147/67 95 08/31/16 15:05 08/31/16 15:05 08/31/16 15:05 08/31/16 15:05 08/31/16 15:05 Internal Medicine: Result - Labs CBC & Chem 7: 08/30/16 04:20 08/30/16 04:20 - ABG Interpretation ABG results: ABG ABG pH 7.41 pH Units (7.32-7.45) 08/27/16 22:55 ABG pCO2 40 mmHg (35-45) 08/27/16 22:55 ABG pO2 65 mmHg (85-104) L 08/27/16 22:55 ABG O2 Saturation 93 % (95-98) L 08/27/16 22:55 PT/INR, D-dimer PT 15.2 Seconds (9.4-12.1) H 08/28/16 04:59 - Attending Attestation I examined this patient and my medical decision-making was reviewed with the CROP QUANTITATIVE GENETICIST/PA/Advanced Practice Nurse/Resident Physician. I agree with the documented findings, disposition and treatment plan as described except to the extent set forth below. UTI due to ESBL Escherichia coli. Febrile the last couple of days. Initially on Rocephin, switched to Ertapenem according to cultures. Doing better, leukocytosis resolved. Possible discharge tomorrow with antibiotics according to cultures.
[2016-08-31] MEDS: Lactulose Oral Soln 20 GM/30 ML UDC PO SCH ×2 (16:41→21:43)
[2016-08-31] MEDS: Acetaminophen 325 MG TABLET PO PRN (21:43)
[2016-09-01] MEDS: Ibuprofen 400 MG TABLET PO PRN (04:26)
[2016-09-01] MEDS: *HR* Heparin 5,000 UNIT/ML VIAL SQ SCH ×2 (05:50→17:31)
[2016-09-01] MEDS: Ertapenem 1,000 MG in 0.9 % Sodium Chloride Mini Bag 100 ML IVPB SCH (08:28)
[2016-09-01 08:39] LABS: Basophils % 0.5 %; Eosinophils # 0.2 K/mcL (0.0-0.6); Eosinophils % 2.3 %; Hematocrit 38.8 % (37.5-50.1); Hemoglobin 12.8 g/dL (12.9-16.9); Immature Granulocytes % 1.1 % (0-4); Lymphocytes % 15.4 %; Mean Corpuscular Hemoglobin 27.8 pg (28.0-33.3); Mean Corpuscular Volume 84.3 fL (83.0-100.0); Mean Platelet Volume 11.3 fL (9.4-12.4); Monocytes # 1.1 K/mcL (0.0-1.3); Monocytes % 17.1 %; Neutrophils # 4.2 K/mcL (1.6-8.9); Platelet Count 175 K/mcL (140-400); Red Cell Distribution Width 14.1 % (11.5-14.5); Segmented Neutrophils % 63.6 %
[2016-09-01 08:54] LABS: BUN/Creatinine Ratio 21 (6-26); Blood Urea Nitrogen 14 mg/dL (8-26); Calcium 9.1 mg/dL (8.6-10.8); Carbon Dioxide 23 mEq/L (19-29); Chloride 104 mEq/L (98-109); Glucose 107 mg/dL (70-99); Osmolality,Calculated 285 (280-300); Phosphorous 3.5 mg/dL (2.3-4.7); Potassium 3.9 mEq/L (3.5-4.5); Sodium 137 mEq/L (136-145); eGFR For African Americans > 60 (> 60); eGFR For Non-African Americans > 60 (> 60)
[2016-09-01] MEDS ORDERED: traMADol 50 MG TABLET PO PRN (11:15)
--- NOTE | 2016-09-01 11:18 | Internal Med Progress Note ---
Date of Encounter: 09/01/16 Time of Encounter: 11:16 - Assessment and plan (1) UTI due to extended-spectrum beta lactamase (ESBL) producing Escherichia coli Current Visit: Yes Status: Acute Assessment and plan: Urine culture positive for Escherichia coli ESBL We will switch to meropenem today given the persistent fevers despite being on antibiotic therapy Will obtain repeat pancultures if patient spikes a temperature overnight (2) Community acquired bacterial pneumonia Current Visit: Yes Status: Acute Assessment and plan: Change antibiotics to meropenem We will monitor overnight, patient remains afebrile for 24 hours, likely DC in the morning Patient seen by physical therapy and reported to be independent (3) Hypertension Current Visit: Yes Status: Chronic Assessment and plan: Noted to be hypertensive Restarted home medications Continue to monitor blood pressure closely Qualifiers: Hypertension type: essential hypertension Qualified Code(s): I10 - Essential (primary) hypertension (4) Constipation Current Visit: Yes Status: Acute Assessment and plan: Patient was started on lactulose for constipation Noted to have 3 loose bowel movements DC lactulose Started Senna Plus PO BID PRN constipation Qualifiers: Qualified Code(s): K59.00 - Constipation, unspecified (5) DVT prophylaxis Current Visit: Yes Status: Acute Assessment and plan: Heparin SQ (6) Thrombocytopenia Current Visit: Yes Status: Resolved Assessment and plan: Resolved - Subjective Interval history: Patient seen and examined at bedside. Resting comfortably in bed and states he feels well, however overnight was noted to have fevers, and diaphoresis. He states was a she seems to get high fevers which get better with Tylenol. Patient was noted to have Tmax of 101.3 overnight. This time he states he is comfortable and has no complaints at this time. Reports of being an every day smoker and is not ready to quit at this time. - Constitutional Vitals: Temp Pulse Resp BP Pulse Ox 97.7 F 61 20 150/80 98 09/01/16 10:16 09/01/16 10:16 09/01/16 10:16 09/01/16 10:16 09/01/16 10:16 General appearance: Present: cooperative, A&O X 3, pleasant, no acute distress, obese, answers questions appropriately - Head Head exam: Present: atraumatic, normocephalic - Eye Eye exam: Present: conjuntiva pink, sclera anicteric - Respiratory Respiratory exam: Present: CTAB. Absent: respiratory distress, wheezes - Cardiovascular Cardiovascular exam: Present: RRR, +S1, +S2 - GI/Abdominal GI/Abdominal exam: Present: normal bowel sounds, soft. Absent: tenderness - Extremities Exam Extremities exam: Present: warm, radial pulses palpable and symetrical. Absent : calf tenderness, pedal edema, tenderness - Neurological Exam Neurological exam: Present: alert, oriented X3, no focal deficits - Psychiatric Psychiatric exam: Present: normal affect, normal mood Internal Medicine: Result - Labs CBC & Chem 7: 09/01/16 08:25 09/01/16 08:25 Labs: Short CBC 09/01/16 Range/Units 08:25 WBC 6.6 (4.3-11.1) K/mcL Hgb 12.8 L (12.9-16.9) g/dL Hct 38.8 (37.5-50.1) % Plt Count 175 (140-400) K/mcL Neutrophils # 4.2 (1.6-8.9) K/mcL BMP 09/01/16 08:25 Sodium 137 Potassium 3.9 Chloride 104 Carbon Dioxide 23 BUN 14 Creatinine 0.67 L Glucose 107 H Calcium 9.1 - ABG Interpretation ABG results: ABG ABG pH 7.41 pH Units (7.32-7.45) 08/27/16 22:55 ABG pCO2 40 mmHg (35-45) 08/27/16 22:55 ABG pO2 65 mmHg (85-104) L 08/27/16 22:55 ABG O2 Saturation 93 % (95-98) L 08/27/16 22:55 PT/INR, D-dimer PT 15.2 Seconds (9.4-12.1) H 08/28/16 04:59 Consult Discharge Plan - Plan Referrals: Ana Juarez CNP [Primary Care Provider] - 09/02/16 12:45 pm
[2016-09-01] MEDS: Gabapentin 400 MG CAPSULE PO SCH ×3 (12:39→20:13)
[2016-09-01] MEDS: hydroCHLOROthiazide 25 MG TABLET PO SCH (12:40)
[2016-09-01] MEDS ORDERED: Acetaminophen 325 MG TABLET PO PRN (14:03)
[2016-09-01] MEDS: Meropenem 1,000 MG in 0.9 % Sodium Chloride Mini Bag 100 ML IVPB SCH (15:27)
[2016-09-01] MEDS ORDERED: Sennosides/Docusate Sodium TABLET PO PRN (21:00)
[2016-09-02] MEDS: Meropenem 1,000 MG in 0.9 % Sodium Chloride Mini Bag 100 ML IVPB SCH ×2 (00:31→09:08)
[2016-09-02 05:33] LABS: Basophils # 0.1 K/mcL (0.0-0.2); Basophils % 0.8 %; Eosinophils # 0.2 K/mcL (0.0-0.6); Eosinophils % 3.2 %; Hematocrit 37.3 % (37.5-50.1); Hemoglobin 12.3 g/dL (12.9-16.9); Immature Granulocytes % 1.1 % (0-4); Lymphocytes # 1.6 K/mcL (0.6-4.6); Lymphocytes % 22.2 %; Mean Corpuscular Hemoglobin 27.9 pg (28.0-33.3); Mean Corpuscular Volume 84.6 fL (83.0-100.0); Mean Platelet Volume 11.7 fL (9.4-12.4); Monocytes # 1.4 K/mcL (0.0-1.3); Monocytes % 19.9 %; Platelet Count 216 K/mcL (140-400); Red Blood Count 4.41 M/mcL (4.19-5.50); Red Cell Distribution Width 14.3 % (11.5-14.5); Segmented Neutrophils % 52.8 %
[2016-09-02 05:46] LABS: BUN/Creatinine Ratio 16 (6-26); Blood Urea Nitrogen 12 mg/dL (8-26); Calcium 8.9 mg/dL (8.6-10.8); Carbon Dioxide 26 mEq/L (19-29); Chloride 100 mEq/L (98-109); Glucose 102 mg/dL (70-99); Osmolality,Calculated 282 (280-300); Phosphorous 3.8 mg/dL (2.3-4.7); Potassium 3.9 mEq/L (3.5-4.5); Sodium 136 mEq/L (136-145); eGFR For African Americans > 60 (> 60); eGFR For Non-African Americans > 60 (> 60)
[2016-09-02] MEDS: *HR* Heparin 5,000 UNIT/ML VIAL SQ SCH (05:53)
[2016-09-02 05:58] LABS: Neutrophils # 3.8 K/mcL (1.6-8.9)
[2016-09-02 06:04] LABS: Large Platelets Present (Not Present); Platelet Estimate Normal (Normal); Reactive Lymphocytes Present (Not Present); Toxic Vacuolation Present (Not Present)
[2016-09-02] MEDS ORDERED: Lisinopril 20 MG TABLET PO SCH (09:00)
[2016-09-02] MEDS: Gabapentin 400 MG CAPSULE PO SCH ×2 (09:12→13:17)
[2016-09-02] MEDS: hydroCHLOROthiazide 25 MG TABLET PO SCH (09:13)
--- NOTE | 2016-09-02 11:07 | Discharge Summary ---
Date of Encounter: 09/02/16 Time of Encounter: 11:05 - Discharge Diagnosis (1) UTI due to extended-spectrum beta lactamase (ESBL) producing Escherichia coli Priority: Primary Status: Acute (2) Community acquired bacterial pneumonia Priority: Primary Status: Acute (3) Hypertension Priority: Secondary Status: Chronic Qualifiers: Hypertension type: essential hypertension Qualified Code(s): I10 - Essential (primary) hypertension (4) Constipation Priority: Secondary Status: Resolved Qualifiers: Constipation type: unspecified constipation type Qualified Code(s): K59.00 - Constipation, unspecified (5) DVT prophylaxis Priority: Secondary Status: Acute (6) Thrombocytopenia Priority: Secondary Status: Resolved - Discharge Medications Prescriptions: Levofloxacin [Levaquin] 500 mg PO DAILY #4 tablet Nitrofurantoin (BID) [Macrobid] 100 mg PO BID #18 capsule Home Medications: Atorvastatin [Lipitor] 40 mg PO HS 08/27/16 [History] Gabapentin [Neurontin] 800 mg PO QID 08/27/16 [History] Hydrochlorothiazide 25 mg PO DAILY 08/27/16 [History] Lisinopril 30 mg PO DAILY 08/27/16 [History] Omeprazole [PriLOSEC] 40 mg PO DAILY 08/27/16 [History] Tramadol HCl [Ultram] 50 mg PO QID PRN 08/27/16 [History] Levofloxacin [Levaquin] 500 mg PO DAILY #4 tablet 09/02/16 [Rx] Nitrofurantoin (BID) [Macrobid] 100 mg PO BID #18 capsule 09/02/16 [Rx] Allergies/Adverse Reactions: Allergies No Known Allergies Allergy (Verified 09/27/15 09:57) Date of admission: 08/27/16 22:50 Primary care physician: NOAH Amin Consults: 08/28/16 14:50 Consult to Physical Therapy [CONS] Routine Comment: Evaluate, develop and implement POC OT [Consult to Occupational Therapy] [CONS] Routine Comment: Evaluate, develop and implement POC 08/29/16 07:51 Consult to Assembler Installer General [CONS] Routine Reason for SW Consult: D/C planning Discharging clinician: Marychuy Shane Anticipated date of discharge: 09/02/16 - Patient Status Disposition: Home, Self-Care Condition: Good Functional capacity at discharge: independent ambulation Overall status at discharge: patient is back to baseline - Discharge Instructions Follow Up With: Ana Juarez CNP [Primary Care Provider] - 09/10/16 12:45 pm Additional Instructions: Please follow up with your primary care physician within one week after your discharge from the hospital. Please continue oral antibiotics as prescribed. You are given two antibiotics, one for PNA and one for UTI. Please resume all your home medications as prescribed by your primary care physician. - Diet and Activity Activity: resume usual activities as tolerated Diet: low salt diet Hospital course: Mr. Stevens is a 60 year old male with PMH of hypertension, hyperlipidemia who was admitted for management of sepsis secondary to PNA and UTI. Patient was initially started on empiric IV abx with slight improvement however as per urine cultures, he was noted to have ESBL UTI and abx were switched as per culture sensitivities. Patient was noted to have persistent fevers despite being on IV Ertapenem due to which he was switched to Meropenem. Patient remained afebrile after starting Meropenem for 24 hours. He reports of feeling significantly better and denies any discomfort at this time. He will be discharged with oral antibiotics and a follow up with his PCP within one week after his discharge. Patient demonstrates understanding of his diagnosis and his discharge plan. - Time Spent with Patient Total time spent providing and/or coordinating discharge services: - Constitutional Vitals: Temp Pulse Resp BP Pulse Ox 98.1 F 65 17 131/69 95 09/02/16 06:51 09/02/16 06:51 09/02/16 06:51 09/02/16 06:51 09/02/16 06:51 General appearance: Present: cooperative, A&O X 3, pleasant, no acute distress, obese, answers questions appropriately - Head Head exam: Present: atraumatic, normocephalic - Eye Eye exam: Present: normal appearance, conjuntiva pink, sclera anicteric - Respiratory Respiratory exam: Present: CTAB. Absent: respiratory distress, wheezes - Cardiovascular Cardiovascular exam: Present: RRR, +S1, +S2 - GI/Abdominal GI/Abdominal exam: Present: normal bowel sounds, soft. Absent: distended, tenderness - Extremities Exam Extremities exam: Present: warm, radial pulses palpable and symetrical. Absent : calf tenderness, pedal edema - Neurological Exam Neurological exam: Present: alert, oriented X3 - Psychiatric Psychiatric exam: Present: normal affect, normal mood
[2016-09-02 11:36] VITALS: BP 144/72
== END 2016-09-02 16:00 | disposition home or self-care (01) | DRG 871 ==
LOC: EMEROO 11:00 → 3ANU 11:00 → SUATTDRO 22:50
PROVIDERS: ADMIT Internal Medicine; ATTEND Internal Medicine

== ENCOUNTER 2019-03-15 07:57 | Observation (INO) ==
[2019-03-15] MEDS: 0.9 % Sodium Chloride 1,000 ML IVC SCH ×2 (08:34→17:16)
[2019-03-15] MEDS ORDERED: *HR* Heparin 10,000 UNIT/10 ML VIAL ONE (09:12)
[2019-03-15] MEDS ORDERED: 0.9 % Sodium Chloride 1,000 ML ONE (09:13)
[2019-03-15] MEDS ORDERED: Iopamidol 125 ML INFUS..BTL ONE (09:13)
[2019-03-15] MEDS ORDERED: Heparin 1,000 UNITS/500 mL 500 ML ONE (09:13)
[2019-03-15] MEDS ORDERED: Nitroglycerin 1,000 MCG/10 ML VIAL IV ONE (09:13)
[2019-03-15] MEDS ORDERED: *HR* FentaNYL (PF) 100 MCG/2 ML VIAL ONE (09:26)
[2019-03-15] MEDS ORDERED: *HR* Midazolam HCl 2 MG/2 ML VIAL ONE (09:26)
[2019-03-15] MEDS ORDERED: Verapamil 5 MG/2 ML VIAL ONE (09:36)
[2019-03-15] MEDS ORDERED: *HR* HYDROcodone/Acet 5/325 mg TABLET PO PRN (13:49)
[2019-03-15] MEDS ORDERED: Ondansetron 4 MG/2 ML VIAL IVP PRN (13:49)
[2019-03-15] MEDS ORDERED: Acetaminophen 325 MG TABLET PO PRN (13:49)
[2019-03-15] MEDS ORDERED: traZODone 50 MG TABLET PO PRN (16:19)
[2019-03-15 16:48] LABS: BUN/Creatinine Ratio 16 (6-26); Blood Urea Nitrogen 12 mg/dL (8-23); Calcium 8.8 mg/dL (8.6-10.3); Carbon Dioxide 28 mEq/L (23-29); Chloride 104 mEq/L (98-107); Glucose 131 mg/dL (70-105); Osmolality,Calculated 284 (280-300); Potassium 3.9 mEq/L (3.5-5.1); Sodium 136 mEq/L (136-145); eGFR For African Americans > 60 (> 60); eGFR For Non-African Americans > 60 (> 60)
[2019-03-15] MEDS: Budesonide/Formoterol 80/4.5 1 PUFF INH IH SCH (21:09)
[2019-03-15] MEDS: Gabapentin 400 MG CAPSULE PO SCH (21:14)
[2019-03-16] MEDS: 0.9 % Sodium Chloride 1,000 ML IVC SCH ×3 (02:57→21:47)
[2019-03-16 03:47] LABS: Basophils # 0.1 K/mcL (0.0-0.2); Basophils % 0.7 %; Eosinophils # 0.2 K/mcL (0.0-0.6); Eosinophils % 2.3 %; Hematocrit 39.5 % (37.5-50.1); Hemoglobin 12.6 g/dL (12.9-16.9); Immature Granulocytes % 0.3 % (0-4); Lymphocytes % 22.4 %; Mean Corpuscular HGB Conc 31.9 g/dL (31.6-35.5); Mean Corpuscular Hemoglobin 28.2 pg (28.0-33.3); Mean Corpuscular Volume 88.4 fL (83.0-100.0); Mean Platelet Volume 10.5 fL (9.4-12.4); Monocytes # 1.2 K/mcL (0.0-1.3); Monocytes % 14.3 %; Neutrophils # 5.2 K/mcL (1.6-8.9); Platelet Count 206 K/mcL (140-400); Red Blood Count 4.47 M/mcL (4.19-5.50); Red Cell Distribution Width 14.3 % (11.5-14.5); White Blood Count 8.7 K/mcL (4.3-11.1)
[2019-03-16 06:59] LABS: BUN/Creatinine Ratio 15 (6-26); Blood Urea Nitrogen 11 mg/dL (8-23); Carbon Dioxide 26 mEq/L (23-29); Chloride 103 mEq/L (98-107); Glucose 104 mg/dL (70-105); Osmolality,Calculated 284 (280-300); Potassium 4.3 mEq/L (3.5-5.1); Sodium 137 mEq/L (136-145); eGFR For African Americans > 60 (> 60); eGFR For Non-African Americans > 60 (> 60)
[2019-03-16] MEDS ORDERED: *HR* HYDROcodone/Acet 5/325 mg TABLET PO PRN (07:38)
[2019-03-16] MEDS: Lisinopril 20 MG TABLET PO SCH (07:41)
[2019-03-16] MEDS: Aspirin Enteric Coated 81 MG Tablet PO SCH (07:42)
[2019-03-16] MEDS: Fenofibrate 54 MG TABLET PO SCH (07:42)
[2019-03-16] MEDS: amLODIPine 5 MG TABLET PO SCH (07:42)
[2019-03-16] MEDS: Gabapentin 400 MG CAPSULE PO SCH ×3 (07:43→19:34)
[2019-03-16] MEDS ORDERED: Aspirin 81 MG TAB.CHEW PO SCH (09:00)
[2019-03-16] MEDS ORDERED: Furosemide 20 MG TABLET PO SCH (09:00)
[2019-03-16] MEDS: Budesonide/Formoterol 80/4.5 1 PUFF INH IH SCH ×2 (09:46→22:17)
[2019-03-16] MEDS ORDERED: 0.9 % Sodium Chloride 1,000 ML ONE ×2 (10:24→11:06)
[2019-03-16] MEDS ORDERED: Iopamidol 125 ML INFUS..BTL ONE ×2 (10:25→12:26)
[2019-03-16] MEDS ORDERED: Nitroglycerin 1,000 MCG/10 ML VIAL IV ONE ×2 (10:25→11:06)
[2019-03-16] MEDS ORDERED: *HR* Heparin 10,000 UNIT/10 ML VIAL ONE ×2 (10:25→11:06)
[2019-03-16] MEDS ORDERED: Heparin 1,000 UNITS/500 mL 500 ML ONE ×2 (10:25→12:31)
[2019-03-16] MEDS ORDERED: Verapamil 5 MG/2 ML VIAL ONE (11:06)
[2019-03-16] MEDS ORDERED: Nitroglycerin 25 MG/250 ML INFUS..BTL IVC ONE (11:12)
[2019-03-16] MEDS ORDERED: *HR* Midazolam HCl 2 MG/2 ML VIAL ONE ×2 (11:19→11:37)
[2019-03-16] MEDS ORDERED: *HR* FentaNYL (PF) 100 MCG/2 ML VIAL ONE (11:19)
[2019-03-16] MEDS ORDERED: *HR* Atropine Sulfate 1 MG/10 ML SYRINGE ONE (12:26)
[2019-03-17 06:00] LABS: Basophils % 0.3 %; Eosinophils # 0.2 K/mcL (0.0-0.6); Eosinophils % 2.6 %; Hematocrit 36.9 % (37.5-50.1); Hemoglobin 11.6 g/dL (12.9-16.9); Immature Granulocytes % 0.3 % (0-4); Lymphocytes # 1.2 K/mcL (0.6-4.6); Lymphocytes % 19.7 %; Mean Corpuscular HGB Conc 31.4 g/dL (31.6-35.5); Mean Corpuscular Hemoglobin 27.7 pg (28.0-33.3); Mean Corpuscular Volume 88.1 fL (83.0-100.0); Mean Platelet Volume 10.8 fL (9.4-12.4); Neutrophils # 3.8 K/mcL (1.6-8.9); Platelet Count 204 K/mcL (140-400); Red Blood Count 4.19 M/mcL (4.19-5.50); Red Cell Distribution Width 14.5 % (11.5-14.5); Segmented Neutrophils % 61.1 %; White Blood Count 6.2 K/mcL (4.3-11.1)
[2019-03-17 06:09] LABS: BUN/Creatinine Ratio 20 (6-26); Blood Urea Nitrogen 13 mg/dL (8-23); eGFR For African Americans > 60 (> 60); eGFR For Non-African Americans > 60 (> 60)
[2019-03-17 07:30] VITALS: BP 112/77
[2019-03-17] MEDS: Aspirin Enteric Coated 81 MG Tablet PO SCH (08:24)
[2019-03-17] MEDS: Fenofibrate 54 MG TABLET PO SCH (08:24)
[2019-03-17] MEDS: Lisinopril 20 MG TABLET PO SCH (08:25)
[2019-03-17] MEDS: amLODIPine 5 MG TABLET PO SCH (08:25)
[2019-03-17] MEDS: Gabapentin 400 MG CAPSULE PO SCH (08:25)
[2019-03-17] MEDS: 0.9 % Sodium Chloride 1,000 ML IVC SCH (08:26)
[2019-03-17] MEDS ORDERED: Isosorbide MONOnitrate (24 HR) 60 MG TAB.ER.24H PO SCH (09:00)
[2019-03-17] MEDS: Budesonide/Formoterol 80/4.5 1 PUFF INH IH SCH (10:40)
== END 2019-03-17 13:20 | disposition home or self-care (01) ==
LOC: INVDIALAB 07:57 → INTOOBSV 15:28 → 2ANU 15:28 → 2NNU 03-16 14:05
PROVIDERS: ADMIT Emergency Medicine; ATTEND Emergency Medicine

== ENCOUNTER 2019-03-23 12:03 | Observation (INO) ==
--- NOTE | 2019-03-23 12:18 | Emergency Department Note ---
Disposition Clinical Impression: Chest pain Qualifiers: Chest pain type: unspecified Qualified Code(s): R07.9 - Chest pain, unspecified Disposition: Admitted As Inpatient Condition: Good Time of Disposition: 17:33 Chest Pain HPI - General Stated Complaint: chest pain Time Seen by Provider: 03/23/19 12:09 Source: patient Mode of arrival: ambulatory Limitations: no limitations Vital Signs Reviewed: Yes Nursing Notes Reviewed: Yes - History of Present Illness HPI Narrative: Patient is a 63-year-old male presenting with chest pain. Patient had known history of CAD status post stent placement 5 on 03/16/[address] Sykes. Also known history of COPD, hypertension and hyperlipidemia. Patient states that the past few days he has been having intermittent chest pain located in the middle of his chest with radiation into the right shoulder currently describes to be sharp in nature, he states that most recent episode started this morning, has been intermittent throughout today, he describes associated shortness of breath that is unchanged from his baseline. No nausea, vomiting or diaphoresis. He states this feels somewhat similar to when he was diagnosed with a GA on the . Patient states that his symptoms are nonexertional, mostly occur at rest. He did take his 81 mg of aspirin as well as his Plavix. No nitroglycerin. - Related Data Home Medications Medication Instructions Recorded Confirmed Gabapentin [Neurontin] 800 mg PO TID PRN 08/27/16 03/15/19 Tramadol HCl [Ultram] 100 mg PO TID PRN 08/27/16 03/15/19 Albuterol Sulfate [Ventolin Hfa] 2 puff IH Q4H PRN 03/15/19 03/15/19 Aspirin [Lo-Dose Aspirin EC] 81 mg PO QAM 03/15/19 03/15/19 Atorvastatin Calcium [Lipitor] 80 mg PO HS 03/15/19 03/15/19 Ezetimibe 10 mg PO QAM 03/15/19 03/15/19 Fenofibric Acid (Choline) 135 mg PO QAM 03/15/19 03/15/19 [Trilipix] Fluticasone/Salmeterol [Advair 2 puff IH BID 03/15/19 03/15/19 250-50 Diskus] Furosemide [Lasix] 40 mg PO MOWEFR 03/15/19 03/15/19 Lisinopril 30 mg PO QAM 03/15/19 03/15/19 Metoprolol Tartrate [Lopressor] 50 mg PO BID 03/15/19 03/15/19 Nitroglycerin 0.3 mg SL PRN PRN 03/15/19 03/15/19 Omeprazole [PriLOSEC] 40 mg PO QAM 03/15/19 03/15/19 Trazodone HCl 100 mg PO HS PRN 03/15/19 03/15/19 amLODIPine [Norvasc] 5 mg PO QAM 03/15/19 03/15/19 Previous Rx's Medication Instructions Recorded Clopidogrel [Plavix] 75 mg PO DAILY #30 tablet 03/17/19 Isosorbide MONOnitrate (24 HR) 60 mg PO DAILY #30 tab.er.24h 03/17/19 [Imdur] Allergies Allergy/AdvReac Type Severity Reaction Status Date / Time No Known Allergies Allergy Verified 03/15/19 17:59 All systems ED: reviewed and negative except as stated. Review of Systems: As Per HPI Constitutional: Denies: fever ENT ED: Denies: congestion Cardiovascular: Reports: chest pain. Denies: palpitations, dyspnea on exertion, syncope Respiratory: Reports: dyspnea. Denies: cough, sputum production Gastrointestinal: Denies: abdominal pain, nausea, vomiting Musculoskeletal: Denies: back pain Integumentary: Denies: rash Neurological: Denies: headache, weakness, confusion Chest Pain PMH - Past Medical History Medical history: Reports: cancer, COPD, hyperlipidemia, hypertension, peripheral artery disease Surgical history: Reports: orthopedic, other Psychiatric history: Reports: no psych history - Social History Smoking Status: Former smoker Alcohol use: Reports: none Drug use: Reports: none Physical Exam General: Conversant. No apparent distress. Follow commands. Appears stated age. Neck: No JVD. Trachea midline. Neck supple. Eyes: PERRL. No scleral icterus. HENT: Normocephalic and atraumatic. Moist mucus membranes. Cardiovascular: Regular rate and rhythm. Normal S1 and S2. No murmurs appreciated. Normal capillary refill. Extremities well perfused with 2+ distal pulses bilaterally. No edema. Pulmonary: Normal and equal breath sounds bilaterally, anteriorly and posteriorly. No wheezes, rales, or rhonchi. Not in respiratory distress. Speaks in full sentences. Abdomen: Soft, nondistended, without tenderness. No bruits or masses. No guarding or rebound. Neuro: Alert and oriented x3. No slurred speech. No focal deficits noted. Skin: No rashes noted on visualized skin. Musculoskeletal: No bony abnormalities visualized. Moves all extremities. Psych: Normal mood. Pleasant. Makes appropriate eye contact. Course Vital Signs Temperature 98.5 F 03/23/19 12:12 Pulse Rate 49 03/23/19 12:12 Respiratory Rate 17 03/23/19 12:12 Blood Pressure 153/76 03/23/19 12:12 O2 Sat by Pulse Oximetry 98 03/23/19 12:12 Temperature 98.8 F 03/23/19 12:27 Pulse Rate 48 03/23/19 17:11 Respiratory Rate 16 03/23/19 17:11 Blood Pressure 143/76 03/23/19 17:11 O2 Sat by Pulse Oximetry 96 03/23/19 17:11 Oxygen Delivery Oxygen Delivery Room Air Chest Pain - MDM Narrative Medical decision making narrative: Patient is a 63-year-old male who is presenting with chest pain. Patient with known history of CAD status post stenting 5 performed on 03/16/2019 as well as hypertension and hyperlipidemia, COPD. On arrival, patient is in no acute distress, he was given 324 mg of aspirin on arrival. EKG shows no acute ischemic changes, chest x-ray shows no acute intracardiac or pulmonary etiology. Laboratory work including CBC, BMP as well as troponin within normal limits. Patient does have heart score of 5. There is also concern for possible pulmonary embolism, for this a d-dimer was performed as patient was relatively low risk, d-dimer was elevated and CTA was performed. CT shows no sign of pulmonary embolism. Given patient's consistent nature of similar symptoms as when he required stenting 1 week ago, patient will be admitted further ACS evaluation. Patient agrees with disposition of admission. - Medical Records Medical records reviewed: Yes I reviewed the patient's medical records. - Lab Data Lab results reviewed: Yes I reviewed the patient's lab results. Result diagrams: 03/23/19 12:34 03/23/19 12:34 Lab Results 03/23/19 03/23/19 03/23/19 Range/Units 12:34 12:34 12:34 WBC 8.3 (4.3-11.1) K/mcL RBC 4.05 L (4.19-5.50) M/mcL Hgb 11.4 L (12.9-16.9) g/dL Hct 35.9 L (37.5-50.1) % MCV 88.6 (83.0-100.0) fL MCH 28.1 (28.0-33.3) pg MCHC 31.8 (31.6-35.5) g/dL RDW 14.5 (11.5-14.5) % Plt Count 258 (140-400) K/mcL MPV 11.3 (9.4-12.4) fL Immature Gran % 0.6 (0-4) % Seg Neutrophils % 63.7 % Lymphocytes % 21.5 % Monocytes % 11.3 % Eosinophils % 2.4 % Basophils % 0.5 % Neutrophils # 5.3 (1.6-8.9) K/mcL Lymphocytes # 1.8 (0.6-4.6) K/mcL Monocytes # 0.9 (0.0-1.3) K/mcL Eosinophils # 0.2 (0.0-0.6) K/mcL Basophils # 0.0 (0.0-0.2) K/mcL PT 13.2 H (9.4-12.1) Seconds INR 1.2 APTT 39.1 H (26.0-36.0) Seconds D-Dimer 1411 H (0-500) ng/mLFEU Sodium 135 L (136-145) mEq/L Potassium 4.3 (3.5-5.1) mEq/L Chloride 99 (98-107) mEq/L Carbon Dioxide 27 (23-29) mEq/L BUN 12 (8-23) mg/dL Creatinine 0.83 (0.70-1.30) mg/dL Est GFR ( Amer) > 60 (> 60) Est GFR (Non-Af Amer) > 60 (> 60) BUN/Creatinine Ratio 14 (6-26) Glucose 149 H (70-105) mg/dL Calculated Osmolality 283 (280-300) Calcium 9.0 (8.6-10.3) mg/dL Troponin I < 0.03 (< 0.04) ng/mL - Radiology Data Radiology results reviewed: Yes I reviewed the patient's radiology results. - EKG Data EKG attestation: Yes I reviewed and interpreted this EKG. EKG results narrative: EKG performed at 1212 ventricular rate of 47, regular rhythm, left axis deviation, no ST segment elevation, depression, no T-wave changes. Heart Score - Score History: Moderately Suspicious EKG: Normal Age: Greater than 65 Risk Factors: Equal/Greater than 3 risk factor or history of atherosclerotic disease Troponin: Less than normal limit HEART Score Total: 5 Attestation Statement - Attestation Attestation: I, Eduard Loomis, examined this patient and my medical decision-making was reviewed with the MOLDING MACHINE OPERATOR HELPER/PA/Advanced Practice Nurse/Resident Physician. I agree with the documented findings, disposition and treatment plan as described except to the extent set forth below. 63-year-old male presents emergency Department with concerns of chest pain. Patient recently had 5 cardiac stents placed within the past week. Patient states that he is started to have still chest pain that radiates to the right upper extremity. He reports associated nausea but denies syncopal event or palpitations. Patient denies missing any of his Plavix. No recent trauma. Chest pain is on not reproducible on physical exam. Patient denies fever, chills, abdominal pain, diarrhea, hematochezia, palpitations, syncope. Patient will be admitted to hospitalist for further care and evaluation. EKG did not show evidence of STEMI. Initial troponin negative.I reviewed the EKG with the resident and agree with the interpretation.
[2019-03-23] MEDS ORDERED: Aspirin 81 MG TAB.CHEW PO ONE (12:35)
[2019-03-23 13:03] LABS: Basophils % 0.5 %; Eosinophils # 0.2 K/mcL (0.0-0.6); Eosinophils % 2.4 %; Hematocrit 35.9 % (37.5-50.1); Hemoglobin 11.4 g/dL (12.9-16.9); Immature Granulocytes % 0.6 % (0-4); Lymphocytes # 1.8 K/mcL (0.6-4.6); Lymphocytes % 21.5 %; Mean Corpuscular HGB Conc 31.8 g/dL (31.6-35.5); Mean Corpuscular Hemoglobin 28.1 pg (28.0-33.3); Mean Corpuscular Volume 88.6 fL (83.0-100.0); Mean Platelet Volume 11.3 fL (9.4-12.4); Monocytes # 0.9 K/mcL (0.0-1.3); Monocytes % 11.3 %; Neutrophils # 5.3 K/mcL (1.6-8.9); Platelet Count 258 K/mcL (140-400); Red Blood Count 4.05 M/mcL (4.19-5.50); Red Cell Distribution Width 14.5 % (11.5-14.5); Segmented Neutrophils % 63.7 %; White Blood Count 8.3 K/mcL (4.3-11.1)
[2019-03-23 13:10] LABS: INR 1.2; Prothrombin Time 13.2 Seconds (9.4-12.1)
[2019-03-23 13:13] LABS: Activated Partial Thrombo Time 39.1 Seconds (26.0-36.0)
[2019-03-23 13:29] LABS: BUN/Creatinine Ratio 14 (6-26); Blood Urea Nitrogen 12 mg/dL (8-23); Carbon Dioxide 27 mEq/L (23-29); Chloride 99 mEq/L (98-107); Glucose 149 mg/dL (70-105); Osmolality,Calculated 283 (280-300); Potassium 4.3 mEq/L (3.5-5.1); Sodium 135 mEq/L (136-145); Troponin I < 0.03 ng/mL (< 0.04); eGFR For African Americans > 60 (> 60); eGFR For Non-African Americans > 60 (> 60)
[2019-03-23] MEDS ORDERED: Isovue-370 500 ML BOTTLE IVP ONE (14:01)
[2019-03-23] MEDS ORDERED: Naloxone 0.4 MG/ML INJ IVP PRN (17:20)
[2019-03-23] MEDS ORDERED: traMADol 50 MG TABLET PO PRN (17:20)
[2019-03-23] MEDS ORDERED: Ondansetron 4 MG/2 ML VIAL IVP PRN (17:20)
[2019-03-23] MEDS ORDERED: Acetaminophen 325 MG TABLET PO PRN (17:20)
[2019-03-23] MEDS ORDERED: Ipratropium/Albuterol Neb 3 ML IH PRN (17:26)
--- NOTE | 2019-03-23 17:38 | Internal Med History&Physical ---
Date of Encounter: 03/23/19 Time of Encounter: 16:47 Internal Medicine - H&P: HPI Chief complaint: chest pain Admitted From: Emergency Dept Plans for Post Hospital Care: Home History of present illness: Mr. Stevens is a 63 year old male with a history of CAD status post recent left heart catheter and PCI, hypertension, chronic tobacco use who was recently discharged 03/17/2019 after a short hospital stay for acute coronary syndrome. It appears by his discharge records he was worked up for unstable angina left heart catheter showed severe three-vessel disease patient was given the option to have CABG or PCI. It appears the patient opted for PCI and he had multivessel PCI with rotablator to RCA 03/16/2019 and was discharged home on dual antiplatelet Therapy with aspirin and Plavix. He admits to being compliant with his medication and treatment plan, however presented today with complaints of epigastric pain occurring intermittently with no correlation with rest or activity. Patient describes the pain as sharp intermittent similar to his prior active coronary syndrome symptoms. He currently denies any chest pain started the nitroglycerin administered resolve the pain. He does report a history of gastrointestinal reflux but stated that his reflux symptoms is more of a burning sensation quite different from its current epigastric pain and that he is compliant with his omeprazole. He denies no associated diaphoresis, nausea vomiting or radiation of this pain to his neck or left lower extremity. He is work up so far included a CTA, chest x-ray and initial troponin were all remarkable Past Med Surg Social Fam HX - Past Medical History Medical history: cancer, COPD, hyperlipidemia, hypertension, peripheral artery disease Additional medical history: sleep apnea Psychiatric history: no psych history - Past Surgical History Surgical History: orthopedic, other Additional surgical history: foot surgery, 5 stents - Social History Smoking Status: Former smoker Smokeless Tobacco Status: No Alcohol use: none Drug use: none - Family History Father Hx Family Respiratory Disorders: Yes (lung disease) Mother Hx Family Cancer: (Leukemia) Internal Medicine - H&P: Meds Gabapentin [Neurontin] 800 mg PO TID PRN 08/27/16 [History] Tramadol HCl [Ultram] 100 mg PO TID PRN 08/27/16 [History] Albuterol Sulfate [Ventolin Hfa] 2 puff IH Q4H PRN 03/15/19 [History] Aspirin [Lo-Dose Aspirin EC] 81 mg PO QAM 03/15/19 [History] Atorvastatin Calcium [Lipitor] 80 mg PO HS 03/15/19 [History] Ezetimibe 10 mg PO QAM 03/15/19 [History] Fenofibric Acid (Choline) [Trilipix] 135 mg PO QAM 03/15/19 [History] Fluticasone/Salmeterol [Advair 250-50 Diskus] 2 puff IH BID 03/15/19 [History] Furosemide [Lasix] 40 mg PO MOWEFR 03/15/19 [History] Lisinopril 30 mg PO QAM 03/15/19 [History] Metoprolol Tartrate [Lopressor] 50 mg PO BID 03/15/19 [History] Nitroglycerin 0.3 mg SL PRN PRN 03/15/19 [History] Omeprazole [PriLOSEC] 40 mg PO QAM 03/15/19 [History] Trazodone HCl 100 mg PO HS PRN 03/15/19 [History] amLODIPine [Norvasc] 5 mg PO QAM 03/15/19 [History] Clopidogrel [Plavix] 75 mg PO DAILY #30 tablet 03/17/19 [Rx] Isosorbide MONOnitrate (24 HR) [Imdur] 60 mg PO DAILY #30 tab.er.24h 03/17/19 [Rx] Allergy/AdvReac Type Severity Reaction Status Date / Time No Known Allergies Allergy Verified 03/15/19 17:59 All Systems PM: A 10-system review of systems was performed and is negative for pertinent findings except as documented above in the HPI. Review of systems: GENERAL: Denies fever, chills, fatigue or night sweats. DERMATOLOGIC: Denies itch, rash or lesions HEENT: Denies headache, blurriness, diplopia or decreased visual acuity, ear pain, tinnitus, rhinorrhea, sinus tenderness or sore throat RESPIRATORY: Denies SOB, cough, hemoptysis or pleuritic chest pain CARDIOVASCULAR: Reports epigastric chest pain, denies LE edema, palpitation or syncope GASTRO INTESTINAL: Denies cramps, nausea/vomiting, diarrhea or constipation, melena MUSCULOSKELATAL: Denies muscle pain/weakness, joint tenderness/pain or swelling PSYCH: Denies worsening anxiety, or depression NEURO: Denies vertigo, dizziness, or ataxia GENITURINARY: Denies dysuria, nocturia or urinary incontinence - Constitutional Vitals: Temp Pulse Resp BP Pulse Ox 98.8 F 48 16 143/76 96 03/23/19 12:27 03/23/19 17:11 03/23/19 17:11 03/23/19 17:11 03/23/19 17:11 Exam: GENERAL: Obese male NAD, A&O x3, pleasant and conversant SKIN: No skin lesions or rashes, non-jaundiced EYES: EOMI, PERRLA, no sclera icterus HENT: Head atraumatic, no facial asymmetry, unkept facial hair, frontal and ma xillary sinus non-tender, normal hearing, oropharynx and mucosa moist and without any exudates NECK: No cervical lymphadenopathy, trachea midline, thyroid is palpable does not appear enlarged LUNGS: vesicular breath sounds, clear to auscultation, mild upper airway wheeze, no rhonchi, rales or crackles. Non labored respirations HEART: Normal rate and rhythm, no murmurs or rubs ABDOMEN: obese soft, non-tender, non-distended, bowel sounds x 4 normoactive EXTRMITIES: No LE asymmetry, No LE edema, pedal pulses 1+ and radial pulses 2 + and equal bilaterally NEURO: Speech and comprehension appears intact.. PSYCH: Cooperative, non- anxious or irritable, mood and affect is appropriate Internal Med - H&P Results - Labs CBC & Chem 7: 03/23/19 12:34 03/23/19 12:34 Labs: Short CBC 03/23/19 Range/Units 12:34 WBC 8.3 (4.3-11.1) K/mcL Hgb 11.4 L (12.9-16.9) g/dL Hct 35.9 L (37.5-50.1) % Plt Count 258 (140-400) K/mcL Neutrophils # 5.3 (1.6-8.9) K/mcL BMP 03/23/19 12:34 Sodium 135 L Potassium 4.3 Chloride 99 Carbon Dioxide 27 BUN 12 Creatinine 0.83 Glucose 149 H Calcium 9.0 Cardiac Enzymes 03/23/19 Range/Units 12:34 Troponin I < 0.03 (< 0.04) ng/mL - Impressions ITS Impressions Chest X-Ray 03/23/19 12:10 IMPRESSION: No acute process. Stable cardiomegaly D/ / Drake Henriquez MD / Drake Henriquez MD Interpreting Provider: Drake Henriquez MD Chest CTA 03/23/19 14:01 IMPRESSION: No evidence of pulmonary embolism or acute pulmonary abnormality. Coronary calcifications. D/ / Benton Ayoub / Benton Ayoub Interpreting Provider: Benton Ayoub - Assessment and Plan (1) Chest pain Current Visit: Yes Status: Acute Assessment and plan: Atypical presentation, patient recently had left heart cath with PCI, quite unlikely for acute coronary syndrome initial troponin was negative. However given his significant CAD history of three-vessel disease we will trend troponins and consult cardiology. He admits to being compliant on plavix and aspirin. There is slight concern for the possible drug interaction between Plavix and omeprazole although still debatable Qualifiers: Chest pain type: unspecified Qualified Code(s): R07.9 - Chest pain, unspecified (2) Coronary artery disease Current Visit: Yes Status: Acute Qualifiers: Coronary Disease-Associated Artery/Lesion type: [place] artery [place] vs. transplanted heart: [place] heart Associated angina: angina presence unspecified Qualified Code(s): I25.10 - Atherosclerotic heart disease of [place] coronary artery without angina pectoris (3) Tobacco abuse Current Visit: Yes Status: Acute Assessment and plan: encouraged tobacco cessation, nicotine patches ordered (4) Hypertension Current Visit: Yes Status: Chronic Assessment and plan: Continue home medications Qualifiers: Hypertension type: essential hypertension Qualified Code(s): I10 - Essential (primary) hypertension (5) GERD (gastroesophageal reflux disease) Current Visit: Yes Status: Acute Assessment and plan: chronic patient denies any current flares, there is concern for possible drug interaction between omeprazole and Plavix although debatable may benefit from a different PPI Qualifiers: Esophagitis presence: esophagitis presence not specified Qualified Code(s): K21.9 - Gastro-esophageal reflux disease without esophagitis (6) DVT prophylaxis Current Visit: Yes Status: Acute Assessment and plan: SCDs - Time Spent With Patient Total time spent is greater than 50% in coordination of care (as documented) at patient's floor/unit and/or counseling patient:
[2019-03-23 18:00] LABS: Lipase 11 Units/L (11-82)
[2019-03-23] MEDS ORDERED: Nitroglycerin 0.4 MG TAB.SUBL SL PRN (18:01)
[2019-03-23 18:06] LABS: Thyroid Stimulating Hormone 1.571 mcIU/mL (0.340-5.600)
[2019-03-23] MEDS ORDERED: traZODone 50 MG TABLET PO PRN (21:28)
[2019-03-23] MEDS: Gabapentin 400 MG CAPSULE PO PRN (21:36)
[2019-03-23] MEDS: Famotidine 20 MG TABLET PO SCH (21:37)
[2019-03-23] MEDS: Budesonide/Formoterol 80/4.5 1 PUFF INH IH SCH (23:48)
[2019-03-24 01:31] LABS: Basophils # 0.1 K/mcL (0.0-0.2); Basophils % 0.6 %; Eosinophils # 0.2 K/mcL (0.0-0.6); Eosinophils % 2.4 %; Hemoglobin 11.6 g/dL (12.9-16.9); Immature Granulocytes % 0.5 % (0-4); Lymphocytes # 1.6 K/mcL (0.6-4.6); Lymphocytes % 18.1 %; Mean Corpuscular HGB Conc 31.4 g/dL (31.6-35.5); Mean Corpuscular Hemoglobin 27.6 pg (28.0-33.3); Mean Corpuscular Volume 88.1 fL (83.0-100.0); Mean Platelet Volume 11.4 fL (9.4-12.4); Monocytes # 1.2 K/mcL (0.0-1.3); Monocytes % 13.2 %; Neutrophils # 5.7 K/mcL (1.6-8.9); Platelet Count 258 K/mcL (140-400); Red Cell Distribution Width 14.4 % (11.5-14.5); Segmented Neutrophils % 65.2 %; White Blood Count 8.7 K/mcL (4.3-11.1)
[2019-03-24 01:49] LABS: BUN/Creatinine Ratio 14 (6-26); Blood Urea Nitrogen 13 mg/dL (8-23); Calcium 9.1 mg/dL (8.6-10.3); Carbon Dioxide 29 mEq/L (23-29); Chloride 98 mEq/L (98-107); Glucose 116 mg/dL (70-105); Magnesium 2.1 mg/dL (1.6-2.6); Osmolality,Calculated 281 (280-300); Potassium 4.3 mEq/L (3.5-5.1); Sodium 135 mEq/L (136-145); eGFR For African Americans > 60 (> 60); eGFR For Non-African Americans > 60 (> 60)
[2019-03-24] MEDS: Budesonide/Formoterol 80/4.5 1 PUFF INH IH SCH ×2 (08:04→19:46)
[2019-03-24] MEDS: Furosemide 40 MG TABLET PO SCH (10:06)
[2019-03-24] MEDS: Famotidine 20 MG TABLET PO SCH ×2 (10:06→21:31)
[2019-03-24] MEDS: Lisinopril 20 MG TABLET PO SCH ×2 (10:07→10:08)
[2019-03-24] MEDS: Aspirin 81 MG TAB.CHEW PO SCH (10:07)
[2019-03-24] MEDS: Isosorbide MONOnitrate (24 HR) 60 MG TAB.ER.24H PO SCH (10:07)
[2019-03-24] MEDS: amLODIPine 5 MG TABLET PO SCH (10:07)
[2019-03-24] MEDS: Nicotine 21 MG PATCH.TD24 TD SCH (10:07)
--- NOTE | 2019-03-24 13:30 | Cardiology Consult Note ---
Date of Encounter: 03/24/19 Time of Encounter: 11:00 Assessment and Plan (1) Chest pain Current Visit: Yes Status: Acute 1. Chest pain s/p PCI x 5 stents; currently chest pain free. 2. Troponins negative x 3. CTA negative for PE. 3. On nitro, imdur, continue. Qualifiers: Chest pain type: unspecified Qualified Code(s): R07.9 - Chest pain, unspecified (2) Coronary artery disease Current Visit: Yes Status: Chronic 1. Limited Echo ordered. 2. On ASA, plavix, statin, BB, ACEI, continue. 3. Will review previous film with diesel locomotive firer of [facility] and determine recs. Qualifiers: Coronary Disease-Associated Artery/Lesion type: [place] artery [place] vs. transplanted heart: [place] heart Associated angina: angina presence unspecified Qualified Code(s): I25.10 - Atherosclerotic heart disease of [place] coronary artery without angina pectoris Discussion w patient/family: The assessment and plan as outlined above was discussed with the patient and/or family members who expressed understanding and agreement. All questions were answered. Thank you for involving us in the care of your patient. Please call with any questions. History of Present Illness Consult date: 03/24/19 Consult reason: chest pain Chief complaint: chest pain History of present illness: Mr. Stevens is a 63 year old male with PMH of CAD, COPD, HTN, HLD, PAD, [place], s/p PCI 03/16/19 stents to RPDA, 1st OM, Mid RCA, prox RCA, Prox Circ, with chronic tobacco use. Presents with complaints of sharp intermittent chest pain 5/10 at rest, not associated with activity. Treated with nitro during admission which resolved the pain. Compliant with medications on DAPT with ASA and Plavix. Denies palpitations, SOB, diaphoresis, dizziness, pedal edema, bleeding. Past Med Surg Social Fam HX - Past Medical History Attestation: Yes The following information was validated with the patient. Source: patient Medical history: cancer, COPD, hyperlipidemia, hypertension, peripheral artery disease Additional medical history: sleep apnea Psychiatric history: no psych history - Past Surgical History Surgical History: orthopedic, other Additional surgical history: foot surgery, 5 stents - Social History Smoking Status: Former smoker Smokeless Tobacco Status: No Alcohol use: none Drug use: none - Family History Father Hx Family Respiratory Disorders: Yes (lung disease) Mother Hx Family Cancer: Yes (Leukemia) Medications and Allergies Gabapentin [Neurontin] 800 mg PO TID PRN 08/27/16 [History] Tramadol HCl [Ultram] 100 mg PO TID PRN 08/27/16 [History] Albuterol Sulfate [Ventolin Hfa] 2 puff IH Q4H PRN 03/15/19 [History] Aspirin [Lo-Dose Aspirin EC] 81 mg PO QAM 03/15/19 [History] Atorvastatin Calcium [Lipitor] 80 mg PO HS 03/15/19 [History] Ezetimibe 10 mg PO QAM 03/15/19 [History] Fenofibric Acid (Choline) [Trilipix] 135 mg PO QAM 03/15/19 [History] Fluticasone/Salmeterol [Advair 250-50 Diskus] 2 puff IH BID 03/15/19 [History] Furosemide [Lasix] 40 mg PO MOWEFR 03/15/19 [History] Lisinopril 30 mg PO QAM 03/15/19 [History] Metoprolol Tartrate [Lopressor] 50 mg PO BID 03/15/19 [History] Nitroglycerin 0.3 mg SL PRN PRN 03/15/19 [History] Omeprazole [PriLOSEC] 40 mg PO QAM 03/15/19 [History] Trazodone HCl 100 mg PO HS PRN 03/15/19 [History] amLODIPine [Norvasc] 5 mg PO QAM 03/15/19 [History] Clopidogrel [Plavix] 75 mg PO DAILY #30 tablet 03/17/19 [Rx] Isosorbide MONOnitrate (24 HR) [Imdur] 60 mg PO DAILY #30 tab.er.24h 03/17/19 [Rx] Allergy/AdvReac Type Severity Reaction Status Date / Time No Known Allergies Allergy Verified 03/15/19 17:59 All Systems Review: The remainder of the systems were reviewed and are negative - Cardiovascular Cardiovascular: as per HPI Physical Examination Vital Signs, Last 4 Hours Temp Pulse Resp BP Pulse Ox 03/24/19 11:52 97.8 F 48 16 132/76 94 General: Conversant, No Apparent Distress HEENT: Atraumatic, Normocephaly, Mucus Membranes Moist Neck: No JVD, Normal carotid pulses Cardiac: Reg Rate and Rhythm, Normal S1 and S2, No Murmur Lungs: Normal Breath Sounds, No Wheeze, Rales, Rhonchi Neuro: Alert and responsive, No focal deficits noted Abdomen: Soft, Non-Tender Skin: No rashes noted on visualized skin Musculoskeletal: No Chest Wall Tenderness Extremities: No Clubbing, No Cyanosis, No Edema, Normal Pulses Results 03/24/19 00:19 03/24/19 00:19 Lab Results Laboratory Tests 03/23/19 03/24/19 03/24/19 12:34 00:19 00:19 Hgb 11.6 L Hct 37.0 L Plt Count 258 D-Dimer 1411 H BUN 13 Creatinine 0.95 Est GFR (Non-Af Amer) > 60 Laboratory Tests 03/23/19 03/23/19 03/24/19 12:34 18:30 00:19 Troponin I < 0.03 < 0.03 < 0.03 Impressions Chest CTA 03/23/19 14:01 IMPRESSION: No evidence of pulmonary embolism or acute pulmonary abnormality. Coronary calcifications. D/ / Benton Ayoub / Benton Ayoub Interpreting Provider: Benton Ayoub Active Medications Acetaminophen (Tylenol) 650 mg PO Q6HR PRN PRN Reason: Mild Pain/Fever Stop: 09/22/19 17:21 Albuterol/Ipratropium (Duoneb) 3 ml IH [id number] PRN PRN Reason: Shortness Of Breath/Wheezing Stop: 09/22/19 17:27 Last Admin: 03/24/19 08:10 Dose: 3 ml Documented by: Amlodipine Besylate (Norvasc) 5 mg PO DAILY [facility]; Protocol Stop: 09/23/19 09:01 Last Admin: 03/24/19 10:07 Dose: 5 mg Documented by: Aspirin (Aspirin) 81 mg PO DAILY [facility] Stop: 09/23/19 09:01 Last Admin: 03/24/19 10:07 Dose: 81 mg Documented by: Atorvastatin Calcium (Lipitor) 80 mg PO HS [facility] Stop: 09/22/19 21:01 Last Admin: 03/23/19 21:36 Dose: 80 mg Documented by: Budesonide/Formoterol Fumarate (Symbicort) 2 puff IH BIDR [facility] Stop: 09/22/19 22:01 Last Admin: 03/24/19 08:04 Dose: 2 puff Documented by: Clopidogrel Bisulfate (Plavix) 75 mg PO DAILY [facility] Stop: 09/23/19 09:01 Last Admin: 03/24/19 10:07 Dose: 75 mg Documented by: Clopidogrel Bisulfate (Plavix) 75 mg PO DAILY [facility] Stop: 09/23/19 09:01 Last Admin: 03/24/19 10:08 Dose: Not Given Documented by: Famotidine (Pepcid) 10 mg PO BID [facility] Stop: 09/22/19 21:01 Last Admin: 03/24/19 10:06 Dose: 10 mg Documented by: Furosemide (Lasix) 40 mg PO DAILY [facility] Stop: 09/23/19 09:01 Last Admin: 03/24/19 10:06 Dose: 40 mg Documented by: Gabapentin (Neurontin) 800 mg PO TID PRN PRN Reason: Pain Stop: 09/22/19 21:28 Last Admin: 03/23/19 21:36 Dose: 800 mg Documented by: Isosorbide Mononitrate (Imdur) 60 mg PO DAILY [facility] Stop: 09/23/19 09:01 Last Admin: 03/24/19 10:07 Dose: 60 mg Documented by: Lisinopril (Zestril) 30 mg PO DAILY [facility]; Protocol Stop: 09/23/19 09:01 Last Admin: 03/24/19 10:07 Dose: 30 mg Documented by: Lisinopril (Zestril) 30 mg PO QAM [facility] Stop: 09/23/19 09:01 Last Admin: 03/24/19 10:08 Dose: Not Given Documented by: Metoprolol Tartrate (Lopressor) 50 mg PO BID [facility] Stop: 09/22/19 21:01 Last Admin: 03/24/19 10:07 Dose: 50 mg Documented by: Naloxone HCl (Narcan) 0.4 mg IVP Q2MPRN PRN PRN Reason: SEE COMMENTS Stop: 09/22/19 17:21 Nicotine (Nicoderm) 21 mg TD DAILY [facility]; Protocol Stop: 09/23/19 09:01 Last Admin: 03/24/19 10:07 Dose: Not Given Documented by: Nitroglycerin (Nitroglycerin) 0.4 mg SL Q5MPRN PRN PRN Reason: Chest Pain Stop: 09/22/19 18:02 Omeprazole (Prilosec) 40 mg PO DAILY@0630 [facility]; Protocol Stop: 09/23/19 06:31 Ondansetron HCl (Zofran) 4 mg IVP Q8HR PRN PRN Reason: Nausea And Vomiting Stop: 09/22/19 17:21 Tramadol HCl (Ultram) 50 mg PO Q6HR PRN PRN Reason: Moderate Pain Stop: 09/22/19 17:21 Trazodone HCl (Trazodone) 100 mg PO HS PRN PRN Reason: Insomnia Stop: 09/22/19 21:29 - Imaging and Cardiology Chest Xray: report reviewed Echo: pending Cardiac cath: report reviewed - EKG Interpretation EKG results cardiology: no diagnostic ischemia Consult Discharge Plan - Plan Referrals: Ana Juarez CREELER [Primary Care Provider] - HAS-BLED Score - Score Medication usage predisposing to bleeding: Antiplatelet agents, NSAIDs, Anticoagulants Score: 1
--- NOTE | 2019-03-24 15:01 | Event Note ---
Date of Encounter: 03/24/19 Time of Encounter: 15:00 - Cardiology Event Note Cath films reviewed with Dr. Looney, no further intervention warranted, will initiate Ranexa, awaiting limited echo.
--- NOTE | 2019-03-24 16:12 | Event Note ---
Date of Encounter: 03/24/19 Time of Encounter: 16:11 - Cardiology Event Note Cardio will sign off at this time; review echo in a.m. HAS-BLED Score - Score Medication usage predisposing to bleeding: Antiplatelet agents, NSAIDs, Anticoagulants Score: 1
[2019-03-24] MEDS ORDERED: Perflutren Lipid Microsphere 1.3 ML in 0.9 % Sodium Chloride 8.7 ML IVP ONE (18:13)
--- NOTE | 2019-03-24 19:25 | Internal Med Progress Note ---
Hospitalist Progress Note - Encounter Date of Encounter: 03/24/19 Time of Encounter: 12:40 - Subjective Interval History: Mr Stevens that his chest pain is intermittent in nature. He was seen by cosmetic counselor and per consult no further workup GEN: Denies fever, chills or malaise HEENT: Denies headache blurriness, or dysphagia RESP: Denies SOB or cough CV: Reports intermittent chest pain denies palpitations GI: Denies Nausea, vomiting, diarrhea or constipation Reviewed current in hospital medications with modifications see orders Reviewed Routine labs - Exam Vitals: Temp Pulse Resp BP Pulse Ox 97.7 F 50 16 119/69 94 03/24/19 15:53 03/24/19 15:53 03/24/19 15:53 03/24/19 15:53 03/24/19 15:53 Exam: GEN: NAD, A&O x 3, Pleasant and conversant SKIN: [place] warm acyanotic not jaundice HEART: RRR, no murmurs LUNGS: CTA no wheeze or crackles, overall non labored ABDOMEN; Soft, non tender or distended, BS x 4 normactive EXT: No LE edema, Pedal pulses 1+, radial pulses 2+ PSYCH: Mood and affect is appropriate - Assessment and Plan (1) Chest pain Current Visit: Yes Status: Acute Assessment and Plan: Troponin 3 was negative he was seen by cosmetic counselor no further workup, appreciate cardiology input Atypical presentation, patient recently had left heart cath with PCI, quite unlikely for acute coronary syndrome initial troponin was negative. However given his significant CAD history of three-vessel disease we will trend troponins and consult cardiology. He admits to being compliant on plavix and aspirin. There is slight concern for the possible drug interaction between Plavix and omeprazole although still debatable (2) Coronary artery disease Current Visit: Yes Status: Chronic Assessment and Plan: encourage compliance to medical regimen (3) Tobacco abuse Current Visit: Yes Status: Acute Assessment and Plan: encouraged tobacco cessation, nicotine patches ordered (4) Hypertension Current Visit: Yes Status: Chronic Assessment and Plan: Continue home medications (5) GERD (gastroesophageal reflux disease) Current Visit: Yes Status: Acute Assessment and Plan: chronic patient denies any current flares, there is concern for possible drug interaction between omeprazole and Plavix although debatable may benefit from a different PPI (6) DVT prophylaxis Current Visit: Yes Status: Acute Assessment and Plan: SCDs - Time Spent with Patient Total time spent is greater than 50% in coordination of care (as documented) at patient's floor/unit and/or counseling patient: Internal Medicine: Result - Labs CBC & Chem 7: 03/24/19 00:19 03/24/19 00:19 Labs: Short CBC 03/24/19 Range/Units 00:19 WBC 8.7 (4.3-11.1) K/mcL Hgb 11.6 L (12.9-16.9) g/dL Hct 37.0 L (37.5-50.1) % Plt Count 258 (140-400) K/mcL Neutrophils # 5.7 (1.6-8.9) K/mcL BMP 03/24/19 00:19 Sodium 135 L Potassium 4.3 Chloride 98 Carbon Dioxide 29 BUN 13 Creatinine 0.95 Glucose 116 H Calcium 9.1 Cardiac Enzymes 03/24/19 Range/Units 00:19 Troponin I < 0.03 (< 0.04) ng/mL - ABG Interpretation ABG results: PT/INR, D-dimer PT 13.2 Seconds (9.4-12.1) H 03/23/19 12:34 D-Dimer 1411 ng/mLFEU (0-500) H 03/23/19 12:34 Consult Discharge Plan - Plan Referrals: Ana Juarez CNP [Primary Care Provider] - (1) Chest pain Qualifiers: Chest pain type: unspecified Qualified Code(s): R07.9 - Chest pain, unspecified (2) Coronary artery disease Qualifiers: Coronary Disease-Associated Artery/Lesion type: [place] artery [place] vs. transplanted heart: [place] heart Associated angina: angina presence unspecified Qualified Code(s): I25.10 - Atherosclerotic heart disease of [place] coronary artery without angina pectoris (4) Hypertension Qualifiers: Hypertension type: essential hypertension Qualified Code(s): I10 - Essential (primary) hypertension (5) GERD (gastroesophageal reflux disease) Qualifiers: Esophagitis presence: esophagitis presence not specified Qualified Code(s): K21.9 - Gastro-esophageal reflux disease without esophagitis
[2019-03-24] MEDS: Ranolazine 500 MG TAB.ER.12H PO SCH (21:30)
[2019-03-24] MEDS: Gabapentin 400 MG CAPSULE PO PRN (21:34)
[2019-03-25 05:32] LABS: Basophils # 0.1 K/mcL (0.0-0.2); Basophils % 0.6 %; Eosinophils # 0.3 K/mcL (0.0-0.6); Eosinophils % 2.8 %; Hematocrit 39.2 % (37.5-50.1); Hemoglobin 12.4 g/dL (12.9-16.9); Immature Granulocytes % 0.6 % (0-4); Lymphocytes # 1.7 K/mcL (0.6-4.6); Lymphocytes % 19.2 %; Mean Corpuscular HGB Conc 31.6 g/dL (31.6-35.5); Mean Corpuscular Hemoglobin 28.1 pg (28.0-33.3); Mean Corpuscular Volume 88.9 fL (83.0-100.0); Monocytes # 1.2 K/mcL (0.0-1.3); Monocytes % 13.4 %; Neutrophils # 5.7 K/mcL (1.6-8.9); Platelet Count 282 K/mcL (140-400); Red Blood Count 4.41 M/mcL (4.19-5.50); Red Cell Distribution Width 14.1 % (11.5-14.5); Segmented Neutrophils % 63.4 %; White Blood Count 8.9 K/mcL (4.3-11.1)
[2019-03-25 05:52] LABS: BUN/Creatinine Ratio 18 (6-26); Blood Urea Nitrogen 18 mg/dL (8-23); Calcium 9.3 mg/dL (8.6-10.3); Carbon Dioxide 28 mEq/L (23-29); Chloride 101 mEq/L (98-107); Glucose 116 mg/dL (70-105); Magnesium 2.2 mg/dL (1.6-2.6); Osmolality,Calculated 289 (280-300); Potassium 4.5 mEq/L (3.5-5.1); Sodium 138 mEq/L (136-145); eGFR For African Americans > 60 (> 60); eGFR For Non-African Americans > 60 (> 60)
[2019-03-25 06:49] VITALS: BP 146/72
[2019-03-25] MEDS: Nicotine 21 MG PATCH.TD24 TD SCH (07:43)
[2019-03-25] MEDS: Budesonide/Formoterol 80/4.5 1 PUFF INH IH SCH (08:02)
--- NOTE | 2019-03-25 08:36 | Discharge Summary ---
- NOTES TO OUTPATIENT PROVIDER Notes to Outpatient Provider: Posthospital discharge for chest pain history of severe coronary artery disease Date of Encounter: 03/25/19 Time of Encounter: 08:31 - Discharge Diagnosis (1) Angina at rest Priority: Primary Status: Acute Assessment and Plan: troponin 3 was negative he was seen by label paster no further workup, appreciate cardiology input, Ranolazine was added to his current regimen Atypical presentation, patient recently had left heart cath with PCI, quite unlikely for acute coronary syndrome initial troponin was negative. However given his significant CAD history of three-vessel disease we will trend troponins and consult cardiology. He admits to being compliant on plavix and aspirin. There is slight concern for the possible drug interaction between Plavix and omeprazole although still debatable (2) Coronary artery disease Priority: Primary Status: Chronic Assessment and Plan: encourage compliance to medical regimen, Ranolazine added in addition to lactulose starting, lisinopril, tramadol, aspirin and Plavix Qualifiers: Coronary Disease-Associated Artery/Lesion type: [place] artery [place] vs. transplanted heart: [place] heart Associated angina: angina presence unspecified Qualified Code(s): I25.10 - Atherosclerotic heart disease of [place] coronary artery without angina pectoris (3) Tobacco abuse Priority: Secondary Status: Acute Assessment and Plan: encouraged tobacco cessation, nicotine patches ordered (4) Hypertension Priority: Secondary Status: Chronic Assessment and Plan: Continue home medications Qualifiers: Hypertension type: essential hypertension Qualified Code(s): I10 - Essential (primary) hypertension (5) GERD (gastroesophageal reflux disease) Priority: Secondary Status: Acute Assessment and Plan: chronic patient denies any current flares, there is concern for possible drug interaction between omeprazole and Plavix although debatable may benefit from a different PPI will discharge him on Prevacid Qualifiers: Esophagitis presence: esophagitis presence not specified Qualified Code(s): K21.9 - Gastro-esophageal reflux disease without esophagitis (6) DVT prophylaxis Priority: Secondary Status: Acute Assessment and Plan: SCDs he has been discharged today Hospital course: Mr. Stevens is a 63 year old male presented with complaints of Atypical presentation with chest discomfort, patient recently had left heart cath with PCI, quite unlikely for acute coronary syndrome initial troponin was negative. However given his significant CAD history of three-vessel disease his troponin was trended 3 negative. He admits to being compliant on plavix and aspirin. There is slight concern for the possible drug interaction between Plavix and omeprazole although still debatable, follow-up on discharge we will discontinue omeprazole and switch him to lansoprazole optimize his medical regimen. He was seen by label paster and he recommended no further workup after review of his profile, ranolazine was added to his medical regimen. Discharge discussed with: patient, family, nurse - Time Spent with Patient Total time spent providing and/or coordinating discharge services: 35 mins Specific discharge activities: Please make sure he keep up with outpatient follow-up appointment with your label paster and PCP and and ensure that you take your medications as prescribed - Discharge Medications Prescriptions: New Gabapentin [Neurontin] 800 mg PO TID #90 tablet Nicotine Patch [Nicoderm] 21 mg TD DAILY #30 patch.td24 Lansoprazole [Prevacid] 30 mg PO QAM #30 capsule. Ranolazine [Ranexa] 500 mg PO BID #60 tab.er.12h Continued Tramadol HCl [Ultram] 100 mg PO TID PRN PRN Reason: Pain Fenofibric Acid (Choline) [Trilipix] 135 mg PO QAM Trazodone HCl 100 mg PO HS PRN PRN Reason: Insomnia Metoprolol Tartrate [Lopressor] 50 mg PO BID Furosemide [Lasix] 40 mg PO MOWEFR Fluticasone/Salmeterol [Advair 250-50 Diskus] 2 puff IH BID amLODIPine [Norvasc] 5 mg PO QAM Aspirin [Lo-Dose Aspirin EC] 81 mg PO QAM Albuterol Sulfate [Ventolin Hfa] 2 puff IH Q4H PRN PRN Reason: Shortness Of Breath Atorvastatin Calcium [Lipitor] 80 mg PO HS Ezetimibe 10 mg PO QAM Lisinopril 30 mg PO QAM Nitroglycerin 0.3 mg SL PRN PRN PRN Reason: Chest Pain Isosorbide MONOnitrate (24 HR) [Imdur] 60 mg PO DAILY #30 tab.er.24h Clopidogrel [Plavix] 75 mg PO DAILY #30 tablet Discontinued Omeprazole [PriLOSEC] 40 mg PO QAM Home Medications: Tramadol HCl [Ultram] 100 mg PO TID PRN 08/27/16 [History] Albuterol Sulfate [Ventolin Hfa] 2 puff IH Q4H PRN 03/15/19 [History] Aspirin [Lo-Dose Aspirin EC] 81 mg PO QAM 03/15/19 [History] Atorvastatin Calcium [Lipitor] 80 mg PO HS 03/15/19 [History] Ezetimibe 10 mg PO QAM 03/15/19 [History] Fenofibric Acid (Choline) [Trilipix] 135 mg PO QAM 03/15/19 [History] Fluticasone/Salmeterol [Advair 250-50 Diskus] 2 puff IH BID 03/15/19 [History] Furosemide [Lasix] 40 mg PO MOWEFR 03/15/19 [History] Lisinopril 30 mg PO QAM 03/15/19 [History] Metoprolol Tartrate [Lopressor] 50 mg PO BID 03/15/19 [History] Nitroglycerin 0.3 mg SL PRN PRN 03/15/19 [History] Trazodone HCl 100 mg PO HS PRN 03/15/19 [History] amLODIPine [Norvasc] 5 mg PO QAM 03/15/19 [History] Clopidogrel [Plavix] 75 mg PO DAILY #30 tablet 03/17/19 [Rx] Isosorbide MONOnitrate (24 HR) [Imdur] 60 mg PO DAILY #30 tab.er.24h 03/17/19 [Rx] Gabapentin [Neurontin] 800 mg PO TID #90 tablet 03/25/19 [Rx] Lansoprazole [Prevacid] 30 mg PO QAM #30 capsule.dr 03/25/19 [Rx] Nicotine Patch [Nicoderm] 21 mg TD DAILY #30 patch.td24 03/25/19 [Rx] Ranolazine [Ranexa] 500 mg PO BID #60 tab.er.12h 03/25/19 [Rx] Allergies/Adverse Reactions: Allergy/AdvReac Type Severity Reaction Status Date / Time No Known Allergies Allergy Verified 03/15/19 17:59 Date of admission: 03/23/19 16:47 Primary care physician: NOAH Aimn Consults: 03/23/19 17:29 Consult to Cardiology [CONS] Routine Comment: Consulting Provider: Cardiology Sherron Reason for Consult: established pt with recent LHC with PCI, c/o chest pain Call Completed: No Discharging clinician: Glory Schneider Anticipated date of discharge: 03/25/19 - Constitutional Vitals: Temp Pulse Resp BP Pulse Ox 98.3 F 54 16 146/72 94 03/25/19 06:43 03/25/19 06:43 03/25/19 08:02 03/25/19 06:43 03/25/19 08:02 Exam: GEN: NAD, A&O x 3, Pleasant and conversant, and female friend at the bedside SKIN: [place] warm acyanotic not jaundice HEART: RRR, no murmurs LUNGS: CTA no wheeze or crackles, overall non labored ABDOMEN; Soft, non tender or distended, BS x 4 normactive EXT: No LE edema, Pedal pulses 1+, radial pulses 2+ PSYCH: Mood and affect is appropriate - Patient Status Disposition: Home, Self-Care Condition: Good Functional capacity at discharge: independent ambulation Overall status at discharge: patient is back to baseline - Discharge Instructions Instructions: Chest Pain (DC) Follow Up With: Ana Juarez 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
[2019-03-25] MEDS: Isosorbide MONOnitrate (24 HR) 60 MG TAB.ER.24H PO SCH (09:12)
[2019-03-25] MEDS: Famotidine 20 MG TABLET PO SCH (09:13)
[2019-03-25] MEDS: amLODIPine 5 MG TABLET PO SCH (09:13)
[2019-03-25] MEDS: Ranolazine 500 MG TAB.ER.12H PO SCH (09:13)
[2019-03-25] MEDS: Aspirin 81 MG TAB.CHEW PO SCH (09:13)
[2019-03-25] MEDS: Lisinopril 20 MG TABLET PO SCH ×2 (09:13→09:19)
[2019-03-25] MEDS: Furosemide 40 MG TABLET PO SCH (09:13)
--- NOTE | 2019-03-27 00:01 | Electrocardiograph Report ---
[facility] Test Date: 2019-03-23 Pat Name: Khang Stevens Department: [id number] Room: 3B44 Gender: M Service Tester: : [id number] Requested By: Eduard Loomis Order Number: [id number] Reading MD: Jesse Vance Measurements Intervals [place] Rate: 47 P: LA: 186 QRS: QRSD: 101 T: QT: 453 QTc: 401 Interpretive Statements Sinus bradycardia Left axis deviation POOR R WAVE PROGRESSION Electronically Signed On 03-27-2019 0:00:01 EDT by Jesse Vance
== END 2019-03-25 09:53 | disposition home or self-care (01) ==
LOC: 3BNU 12:03 → EMEROOARM 12:03 → SUATTDRO 16:47 → 3BNU 17:34
PROVIDERS: ADMIT Pharmacist; ATTEND Pharmacist

== ENCOUNTER 2020-05-01 13:26 | Observation (INO) ==
[2020-05-01] MEDS ORDERED: Nitroglycerin 0.4 MG TAB.SUBL SL PRN (13:40)
[2020-05-01] MEDS ORDERED: Aspirin 81 MG TAB.CHEW PO ONE (13:40)
[2020-05-01 14:03] LABS: Basophils # 0.1 K/mcL (0.0-0.2); Basophils % 0.7 %; Eosinophils # 0.2 K/mcL (0.0-0.6); Hematocrit 40.8 % (37.5-50.1); Hemoglobin 12.6 g/dL (12.9-16.9); Immature Granulocytes % 0.3 % (0-4); Lymphocytes # 1.7 K/mcL (0.6-4.6); Lymphocytes % 22.5 %; Mean Corpuscular HGB Conc 30.9 g/dL (31.6-35.5); Mean Corpuscular Hemoglobin 28.5 pg (28.0-33.3); Mean Corpuscular Volume 92.3 fL (83.0-100.0); Mean Platelet Volume 11.1 fL (9.4-12.4); Monocytes # 0.9 K/mcL (0.0-1.3); Monocytes % 12.3 %; Neutrophils # 4.6 K/mcL (1.6-8.9); Platelet Count 216 K/mcL (140-400); Red Blood Count 4.42 M/mcL (4.19-5.50); Red Cell Distribution Width 14.2 % (11.5-14.5); Segmented Neutrophils % 62.2 %; White Blood Count 7.4 K/mcL (4.3-11.1)
[2020-05-01 14:30] LABS: BUN/Creatinine Ratio 18 (6-26); Blood Urea Nitrogen 14 mg/dL (8-23); Calcium 9.2 mg/dL (8.6-10.3); Carbon Dioxide 28 mEq/L (23-29); Chloride 102 mEq/L (98-107); Glucose 101 mg/dL (70-105); Osmolality,Calculated 283 (280-300); Sodium 136 mEq/L (136-145); Troponin I < 0.03 ng/mL (< 0.04); eGFR For African Americans > 60 (> 60); eGFR For Non-African Americans > 60 (> 60)
[2020-05-01 14:31] LABS: INR 1.1; Prothrombin Time 12.6 Seconds (9.4-12.1)
[2020-05-01 14:34] LABS: Activated Partial Thrombo Time 34.2 Seconds (26.0-36.0)
[2020-05-01] MEDS ORDERED: Naloxone 0.4 MG/ML INJ IVP PRN (14:50)
[2020-05-01] MEDS ORDERED: 0.9 % Sodium Chloride 1,000 ML IVC SCH (15:30)
[2020-05-01] MEDS ORDERED: Ipratropium/Albuterol Neb 3 ML IH PRN (15:30)
[2020-05-01] MEDS: *HR* Heparin 5,000 UNIT/ML VIAL SQ SCH (16:54)
[2020-05-02 02:00] LABS: Estimated Average Glucose 120 mg/dl
[2020-05-02 02:10] LABS: Chol/HDL Ratio 4.5 (0-4.9)
[2020-05-02] MEDS: *HR* Heparin 5,000 UNIT/ML VIAL SQ SCH (06:06)
[2020-05-02] MEDS ORDERED: Regadenoson 0.4 MG/5 ML SYRINGE IVP ONE (06:52)
[2020-05-02] MEDS ORDERED: Aspirin 81 MG TAB.CHEW PO SCH (09:00)
[2020-05-02] MEDS ORDERED: traZODone 50 MG TABLET PO PRN (09:10)
[2020-05-02] MEDS ORDERED: Gabapentin 400 MG CAPSULE PO SCH (09:15)
[2020-05-02] MEDS ORDERED: Ranolazine 500 MG TAB.ER.12H PO SCH (09:15)
[2020-05-02] MEDS ORDERED: Fenofibrate 54 MG TABLET PO SCH (09:15)
[2020-05-02] MEDS ORDERED: Bumetanide 1 MG TABLET PO SCH (09:15)
[2020-05-02] MEDS ORDERED: Isosorbide MONOnitrate (24 HR) 60 MG TAB.ER.24H PO SCH (09:15)
[2020-05-02] MEDS ORDERED: Budesonide/Formoterol 80/4.5 1 PUFF INH IH SCH (10:00)
[2020-05-02] MEDS ORDERED: lisinopriL 5 MG TABLET PO SCH (12:45)
[2020-05-02 15:15] VITALS: BP 121/55
== END 2020-05-02 18:22 | disposition home or self-care (01) ==
LOC: 3BNU 13:26 → EMEROOARM 13:26 → 3BNU 15:23
PROVIDERS: ADMIT Internal Medicine; ATTEND Internal Medicine